=== PATIENT | female | born 1935 | race Caucasian/White ===

== ENCOUNTER 2018-12-09 21:24 | Inpatient (IN) ==
[2018-12-09 21:45] LABS: Basophils # 0.1 K/mm3 (0-0.2); Basophils % 0.9 % (0.1-2.0); Eosinophils # 0.2 K/mm3 (0.0-0.4); Eosinophils % 2.6 % (0.1-12.0); Hematocrit 42.6 % (37.0-47.0); Hemoglobin 13.4 g/dL (12.2-16.2); Lymphocytes # 2.3 K/mm3 (0.7-4.5); Lymphocytes % 35.4 % (10-50); Mean Corpuscular HGB Conc 31.5 g/dL (31.8-35.4); Mean Corpuscular Volume 96.5 fl (81-99); Mean Platelet Volume 7.8 fl (7.4-10.4); Monocytes # 0.4 K/mm3 (0.1-1.0); Monocytes % 6.7 % (1.7-9.3); Neutrophils # 3.5 K/mm3 (1.8-7.8); Neutrophils % 54.3 % (37.0-80.0); Platelet Count 271 K/mm3 (142-424); Red Blood Count 4.42 M/mm3 (4.20-5.40); Red Cell Distribution Width 13.1 % (11.5-17.5); White Blood Count 6.4 K/mm3 (4.8-10.8)
[2018-12-09 22:00] LABS: Blood Urea Nitrogen 20 mg/dL (7-18); Calcium 9.2 mg/dL (8.5-10.1); Carbon Dioxide 29 mmol/L (21.0-32.0); Chloride 103 mmol/L (98-107); Glucose 185 mg/dL (74-106); Sodium 141 mmol/L (136-145)
--- NOTE | 2018-12-09 22:29 | Emergency Department Note ---
ED Disposition Clinical Impression: Acute coronary syndrome Disposition: Admitted As Inpatient Condition on Discharge: Serious - Critical Care Critical Care Time: No Attestation: On 12/09/18, the high probability of a clinically significant, sudden or life threatening deterioration of the following system(s) required my full and direct attention, intervention and personal management. The time I documented below is in addition to time spent performing reported procedures but includes the following listed in this critical care notation. Medical Decision Making - Medical Records Medical records reviewed: Yes: I reviewed the patient's medical records. - Aakash Inquiry Pt receiving controlled substance: No Vital Signs: 12/09/18 21:24 12/09/18 22:07 12/09/18 22:45 Temperature 99.3 F Temperature Source Oral Pulse Rate [Right Brachial] 78 71 69 Respiratory Rate 20 18 18 Blood Pressure [Right Arm] 160/93 H 170/83 H 163/69 H Blood Pressure Mean [Right Arm] 115 112 100 Blood Pressure Source [Right Arm] Automatic Cuff Automatic Cuff Automatic Cuff Blood Pressure Position [Right Arm] Sitting Sitting Sitting 02 Sat by Pulse Oximetry 96 95 96 Oxygen Delivery Method Room Air Nasal Cannula Nasal Cannula Oxygen Flow Rate (LPM) 2 2 - Lab Data Lab results reviewed: Yes: I reviewed the patient's lab results. Lab Results 12/09/18 21:15: WBC 6.4, RBC 4.42, Hgb 13.4, Hct 42.6, MCV 96.5, MCH 30.4, MCHC 31.5 L, RDW 13.1, Plt Count 271, MPV 7.8, Neut % (Auto) 54.3, Lymph % (Auto) 35.4, [place] % (Auto) 6.7, Eos % (Auto) 2.6, Baso % (Auto) 0.9, Neut # (Auto) 3.5, Lymph # (Auto) 2.3, [place] # (Auto) 0.4, Eos # (Auto) 0.2, Baso # (Auto) 0.1 12/09/18 21:15: Sodium 141, Potassium 4.0, Chloride 103, Carbon Dioxide 29, Anion Gap 13.0, BUN 20 H, Creatinine 0.97, Estimated Creat Clear 31, Estimated GFR 55 L, Est GFR ( Amer) 66, Glucose 185 H, Calcium 9.2, Troponin I < 0 .02 12/09/18 21:15: PT 11.2, INR 1.08, APTT 27.6 Result diagrams: 12/09/18 21:15 12/09/18 21:15 Orders (Tests/Meds): ED MEDICATIONS Generic Name Dose Route Start Last Admin Trade Name Freq PRN Reason Stop Dose Admin Heparin Sodium/Dextrose 500 mls @ 10 mls/hr 12/09/18 22:30 12/09/18 22:33 Heparin 25,000 Units In D5w 500ml Premix IV 01/08/19 22:29 10 mls/hr .Q25H LISETTE Administration 500 UNITS/HR Discontinued Medications Generic Name Dose Route Start Last Admin Trade Name Freq PRN Reason Stop Dose Admin Heparin Sodium (Porcine) 4,700 unit 12/09/18 21:57 12/09/18 21:58 Heparin Sodium 5,000 Units/Ml Vial IV 12/09/18 21:58 4,700 unit ONCE ONE Administration Morphine Sulfate 2 mg 12/09/18 22:30 12/09/18 22:31 Morphine 2mg/Ml Syringe IV 12/09/18 22:31 2 mg ONCE ONE Administration Nitroglycerin 1 gm 12/09/18 22:30 12/09/18 22:32 Nitroglycerin 1 Inch Oint Udp TD 12/09/18 22:31 1 gm ONCE ONE Administration Ticagrelor 180 mg 12/09/18 21:57 12/09/18 21:58 Brilinta 90mg Tablet PO 12/09/18 21:58 180 mg ONCE ONE Administration ORDERS Category Date Time Status XR chest portable Stat Exams 12/09/18 21:35 Taken ECG Request by /Nse Stat Y 12/09/18 21:34 Ordered - Radiology Data #1 Image(s): Chest Image Reviewed: Yes I reviewed the patient's radiology image Preliminary Findings: Normal/NAD - ECG Data Tracing #1 I reviewed this ECG and interpreted as documented below: Arrhythmias present: afib Ischemic changes: ST elevation ECG compared to prior tracings: this ECG reveals significant changes Tracing #2 Arrhythmias present: accelerated junctional rhythm Ischemic changes: non-specific ST-T wave changes ECG compared to prior tracings: this ECG reveals significant changes Tracing #3 Arrhythmias present: afib Ischemic changes: non-specific ST-T wave changes - Physician Consults Physician Consulted: dimas Reason -: Admission Additional Consult: nae Reason -: Pt condition Chest Pain HPI - General Chief Complaint: Chest Pain Stated Complaint: CP Time Seen by Provider: 12/09/18 21:25 Mode of Arrival: EMS Source of Information: Patient, Relative, EMS, Medical Record Limitations: No Limitations Description of Symptoms (Recalled from ER Triage Doc. by RN): Pt c/o cp that started about couple hours ago. Denies any other symptoms at this time. - History of Present Illness HPI narrative: pt with acute onset of chest pain tonight with hx of cardiac disease - MD complaint: chest pain indicative of cardiac Onset (ago): hour(s) Duration: intermittent Activity at onset: during rest Pain location: substernal Quality: heaviness Treatments prior to or on arrival for Cardiac Chest Pain: none - EMY Score for Non-Stemi Age of Patient: 80-89 years old Heart Rate: 70-89 bpm Systolic Blood Pressure: 160-199 mmHg Serum Creatinine: 0.80-1.19 mg/dl CHF [place] Class: I-No CHF Other Risk Factors: None Non-Stemi Risk Score: 117 - Related Data Prior Cardiac Testing/Procedures: CABG On Oral Contraceptives: No Allergies Allergy/AdvReac Type Severity Reaction Status Date / Time MED GIVEN TO REVERSE EPIDURAL Allergy Unknown Uncoded 05/28/17 14:31 [facility] History - Hepatitis A Screen Drug use history?: No High risk sexual behaviors?: No History of sexually transmitted infection?: No Currently employed?: No Childcare worker?: No Do you have indoor plumbing?: Yes Do you have electricity?: Yes Attestation statement:: This patient has been screened for Hepatitis A risk factors. I have reviewed the patient's past medical history: Yes - Social History Alcohol Intake: never Occupational Status: retired ROS Obtained: Yes All systems reviewed & no additional complaints - Constitutional Constitutional: Denies fever(s) - Eyes Eyes: Denies change in vision - ENT Ears, Nose, Mouth, and Throat: Denies sore throat - Cardiovascular Cardiovascular: Reports chest pain, Reports dyspnea - Respiratory Respiratory: No cough - Gastrointestinal Gastrointestingal: Denies: abdominal pain - Genitourinary Female Genitourinary: Denies hematuria - Musculoskeletal Musculoskeletal: Denies joint pain - Integumentary/Breasts Skin/Breast: Denies rash - Neurologic Neurologic: Denies seizure-like activity Physical Exam - General General appearance: alert - Head Head exam: normocephalic - Eye Eye exam: Present: PERRL, EOMI. Absent: scleral icterus - ENT ENT exam: Present: mucous membranes dry - Neck Neck exam: Present: trachea midline - Respiratory Respiratory exam: Present: normal lung sounds bilaterally. Absent: respiratory distress - Cardiovascular Cardiovascular exam: Present: regular rate, systolic murmur, +S4 - Abdominal Exam Abdominal exam: Present: soft - Extremities Exam Extremities exam: Absent: calf tenderness - Neurological Exam Neurological exam: Present: alert, oriented X3, CN II-XII intact - Psychiatric Psychiatric exam: Present: normal affect - Skin Skin exam: Absent: rash
[2018-12-09 23:01] LABS: Activated Partial Thrombo Time 27.6 seconds (23.6-34.0); INR 1.08 (0.9-1.1); Prothrombin Time 11.2 seconds (9.4-11.8)
--- NOTE | 2018-12-10 07:39 | Pharmacy Consult Notes ---
[facility] Pharmacy VTE Monitoring - Patient Demographics Admission date: 12/09/18 Report Date: 12/10/18 Time: 07:39 Allergies/Adverse Reactions: Patient Allergies MED GIVEN TO REVERSE EPIDURAL Allergy (Unknown, Uncoded 05/28/17 14:31) Height: 1.52 m Weight: 50.547 kg Patient Problems: Current Active Problems (Updated 12/09/18 @ 23:14 by Macho Zuniga MD) Acute coronary syndrome (Acute) - VTE Risk Labs: VTE Related Lab Results Hgb 13.4 g/dL (12.2-16.2) 12/09/18 21:15 Hct 42.6 % (37.0-47.0) 12/09/18 21:15 Plt Count 271 K/mm3 (142-424) 12/09/18 21:15 PT 11.2 seconds (9.4-11.8) 12/09/18 21:15 INR 1.08 (0.9-1.1) 12/09/18 21:15 APTT 27.6 seconds (23.6-34.0) 12/09/18 21:15 BUN 20 mg/dL (7-18) H 12/09/18 21:15 Creatinine 0.97 mg/dL (0.55-1.02) 12/09/18 21:15 Estimated Creat Clear 31 mL/min (50-200) 12/09/18 21:15 Was VTE Risk Assessment Performed: Yes VTE Score: 5 VTE Risk Level: Low Risk Clinical Trial Participant: No - Prophylaxis VTE Prophylaxis Ordered?: Yes Types of VTE Prophylaxis: TEDS Knee High
--- NOTE | 2018-12-10 07:58 | History & Physical Report ---
*Admission Date: 12/09/18 *Chief complaint: Chest pain *History of present illness: 83-year-old female presented to the emergency department yesterday evening after onset of chest pain at home with fear that she was having a heart attack. She took nitroglycerin in route to the hospital. In the emergency department patient underwent evaluation and was admitted for serial troponins. Her second troponin was markedly abnormal. Patient this morning denies any current chest pain and a nitroglycerin patch is in place. She does admit to nausea with ambulation only. Patient has a personal history of coronary artery disease and is status post CABG and PCI. Patient does not know the dates of interventions and family who is at bedside is unable to provide additional information [facility] History I have reviewed the patient's past medical history: Yes Medical History: Reports:: Arrhythmia, Atrial Fibrillation, Hypertension Denies:: Cancer, Diabetes Mellitus Type 1, Diabetes Mellitus Type 2, MRSA *Have you ever received a pneumonia vaccine?: Yes *Have you received a flu vaccine this season?: Yes Laterality Cases: Bilateral: Arthroscopy Shoulder Other Surgeries: Yes: CABG, Cardiac Catheterization Amputation: No Fractures: Yes - *Social History Smoking Status: Never smoker Alcohol Intake: never *Occupational Status:: retired Housing: house Household Members: spouse *Travel in the last 8 weeks: None - Psychiatric History Expresses thoughts of harming self/others: None Suicide Plan Description: No Plan Family Hx:: Cancer, Coronary Artery Disease, Heart Attack, Hyperlipidemia, Hypertension Review of Systems - Review of Systems Review of systems:: pertinent systems reviewed and negative unless documented below - *Neurologic Denies seizure-like activity Meds Allergies Allergy/AdvReac Type Severity Reaction Status Date / Time MED GIVEN TO REVERSE EPIDURAL Allergy Unknown Uncoded 05/28/17 14:31 Exam Vital signs and Labs for Last 24 Hours: Temp Pulse Resp BP Pulse Ox 97.4 F L 82 16 134/79 98 12/10/18 04:00 12/10/18 04:00 12/10/18 04:00 12/10/18 04:00 12/10/18 04:00 Laboratory Results - last 24 hr 12/09/18 21:15: WBC 6.4, RBC 4.42, Hgb 13.4, Hct 42.6, MCV 96.5, MCH 30.4, MCHC 31.5 L, RDW 13.1, Plt Count 271, MPV 7.8, Neut % (Auto) 54.3, Lymph % (Auto) 35.4, [place] % (Auto) 6.7, Eos % (Auto) 2.6, Baso % (Auto) 0.9, Neut # (Auto) 3.5, Lymph # (Auto) 2.3, [place] # (Auto) 0.4, Eos # (Auto) 0.2, Baso # (Auto) 0.1 12/09/18 21:15: Sodium 141, Potassium 4.0, Chloride 103, Carbon Dioxide 29, Anion Gap 13.0, BUN 20 H, Creatinine 0.97, Estimated Creat Clear 31, Estimated GFR 55 L, Est GFR ( Amer) 66, Glucose 185 H, Calcium 9.2, Troponin I < 0.02 12/09/18 21:15: PT 11.2, INR 1.08, APTT 27.6 12/10/18 02:45: Troponin I 38.23 H I & O for Last 24 hours: Intake & Output 12/07/18 12/08/18 12/09/18 12/10/18 11:59 11:59 11:59 11:59 Output Total 150 / 150 Balance -150 / -150 Weight 111 lb 7 oz Narrative: Patient is laying comfortably in bed although she looks afraid. ENT exam is grossly normal. Neck has no lymphadenopathy or jugular venous distention. Heart rate is irregular. Lungs are clear. Abdomen is thin and soft. Extremities are without edema Assessment and Plan (1) Non-ST elevation IN (NSTEMI) Current visit: Yes Status: Acute Category: Medical Code(s): I21.4 - Non-ST elevation (NSTEMI) myocardial infarction (2) Atherosclerotic heart disease Current visit: Yes Status: Acute Category: Medical Code(s): I25.10 - Atherosclerotic heart disease of [place] coronary artery without angina pectoris (3) Acute coronary syndrome Current visit: Yes Status: Acute Category: Medical Code(s): I24.9 - Acute ischemic heart disease, unspecified - Assessment and plan all Dx Assessment and Plan for all problems:: 1. Continue heparin, nitroglycerin paste 2. Home medicines will be reconciled 3. Cardiology consult
[2018-12-10 08:06] LABS: Anion Gap 11.4 mEq/L (5-15); Calcium 8.4 mg/dL (8.5-10.1); Chol/HDL Ratio 2.3 (1-3.5)
[2018-12-10 08:21] LABS: Lymphocytes # 1.5 K/mm3 (0.7-4.5)
--- NOTE | 2018-12-10 08:22 | Pharmacy Consult Notes ---
[facility] Pharmacy Heparin Dosing - Demographic Data Admission date:: 12/10/18 Date: 12/10/18 Time: 08:18 Allergies/Adverse Reactions: Allergies Allergy/AdvReac Type Severity Reaction Status Date / Time MED GIVEN TO REVERSE EPIDURAL Allergy Unknown Uncoded 05/28/17 14:31 Height: 1.52 m Weight: 50.5 kg - Indication Medication therapy:: Heparin Patient Problems: Current Active Problems (Updated 12/10/18 @ 10:14 by Renetta Kraft APRN) Acute coronary syndrome (Acute) Non-ST elevation [place] (NSTEMI) (Acute) Atherosclerotic heart disease (Acute) Coronary artery disease (Chronic) History of coronary artery bypass graft (Chronic) Hypertension (Chronic) Atrial fibrillation (Chronic) CVA?: No Bleeding problem?: No Kidney disease?: No HI?: Yes Desired PTT range:: 60-80 seconds - Labs Anticoagulation Lab Results:: 12/09/18 21:15 Hgb 13.4 Hct 42.6 Plt Count 271 - Monitoring Dose Monitor 1 Date: 12/09/18 Time: 21:15 PTT Result:: 27.6 Infusion Rate:: 500 UNITS/HR (10 ML/HR) DR. HARRIS ORDERED HEPARIN BOLUS 100 UNITS/KG (4700 UNITS) X1 DOSE. ER CALLED FOR DOSING FOR DRIP. RECOMMENDED PATIENT START AT 500 UNITS/HR (10 ML/HR). Comment:: 4700 UNIT BOLUS Dose Monitor 2 Date: 12/10/18 Time: 06:08 PTT Result:: 54.1 Infusion Rate:: 550 UNITS/HR (11 ML/HR) Comment:: REDRAW AT 1300 - Core Measures Is INR > or = 2 at discharge?: No Most Recent Labs:: Laboratory Results - last 24 hr 12/09/18 21:15: WBC 6.4, RBC 4.42, Hgb 13.4, Hct 42.6, MCV 96.5, MCH 30.4, MCHC 31.5 L, RDW 13.1, Plt Count 271, MPV 7.8, Neut % (Auto) 54.3, Lymph % (Auto) 35.4, [place] % (Auto) 6.7, Eos % (Auto) 2.6, Baso % (Auto) 0.9, Neut # (Auto) 3.5, Lymph # (Auto) 2.3, [place] # (Auto) 0.4, Eos # (Auto) 0.2, Baso # (Auto) 0.1 12/09/18 21:15: Sodium 141, Potassium 4.0, Chloride 103, Carbon Dioxide 29, Anion Gap 13.0, BUN 20 H, Creatinine 0.97, Estimated Creat Clear 31, Estimated GFR 55 L, Est GFR ( Amer) 66, Glucose 185 H, Calcium 9.2, Troponin I < 0.02 12/09/18 21:15: PT 11.2, INR 1.08, APTT 27.6 12/10/18 02:45: Troponin I 38.23 H 12/10/18 06:08: Sodium 141, Potassium 4.4, Chloride 108 H, Carbon Dioxide 26, Anion Gap 11.4, BUN 17, Creatinine 0.75 D, Estimated Creat Clear 33, Estimated GFR 73, Est GFR ( Amer) 89 D, Glucose 114 H D, Calcium 8.4 L, Magnesium 1.9, Triglycerides 31, Cholesterol 139 L, LDL Cholesterol 73, VLDL Cholesterol 6, HDL Cholesterol 60, Cholesterol/HDL Ratio 2.3 12/10/18 06:08: APTT 54.1 H* D Were Heparin and Warfarin started on the same day?: No Comments:: WARFARIN NOT STARTED, HEART CATH DONE
[2018-12-10 08:59] LABS: Basophils % 0.4 % (0.1-2.0); Eosinophils % 0.2 % (0.1-12.0); Hematocrit 38.7 % (37.0-47.0); Mean Corpuscular HGB Conc 30.7 g/dL (31.8-35.4); Mean Corpuscular Volume 97.6 fl (81-99); Mean Platelet Volume 7.6 fl (7.4-10.4); Monocytes # 0.5 K/mm3 (0.1-1.0); Neutrophils # 4.4 K/mm3 (1.8-7.8); Neutrophils % 68.4 % (37.0-80.0); Platelet Count 230 K/mm3 (142-424); Red Blood Count 3.96 M/mm3 (4.20-5.40); White Blood Count 6.4 K/mm3 (4.8-10.8)
[2018-12-10 09:14] LABS: Hemoglobin 11.9 g/dL (12.2-16.2)
--- NOTE | 2018-12-10 10:06 | Consult Report ---
History of Present Illness Consult date: 12/10/18 Requesting physician: Brady Medina Consult reason: chest pain Chief complaint: Chest pain Additional Medical History:: 1. Coronary artery disease status post coronary artery bypass grafting 2. Atrial fibrillation 3. Hypertension History of present illness: This is an 83-year-old white female who presented to the emergency department with chest pain. The patient states that she ate dinner last night and after she ate dinner she had sudden onset of chest pain. She states that this is a left-sided severe pressure sensation. She states that it did not radiate. She states that it was very uncomfortable and is associated with shortness of breath and nausea. She states she feels as if she is going to vomit but has not been able to vomit. The patient states that the pain was the worst pain that she has had ever experienced before and was severe. The patient states that she still feels really bad this morning. She states that she is extremely nauseated. Her chest pain and pressure are better but the nausea is severe. The patient denies shortness of breath this morning but she looks short of breath and when she is talking she gets very short of breath easily. The patient denies any fever, chills, vomiting, diarrhea. She states prior to last night she had not had any chest pain. She states that she did take some nitroglycerin at home before coming to the emergency department which did help her pain. She states nothing worsened her pain. [facility] History I have reviewed the patient's past medical history: Yes Medical History: Reports:: Arrhythmia, Atrial Fibrillation, Hypertension Denies:: Cancer, Diabetes Mellitus Type 1, Diabetes Mellitus Type 2, MRSA *Have you ever received a pneumonia vaccine?: Yes *Have you received a flu vaccine this season?: Yes Laterality Cases: Bilateral: Arthroscopy Shoulder Other Surgeries: Yes: CABG, Cardiac Catheterization Amputation: No Fractures: Yes - *Social History Smoking Status: Never smoker Alcohol Intake: never *Occupational Status:: retired Housing: house Household Members: spouse *Travel in the last 8 weeks: None - Psychiatric History Expresses thoughts of harming self/others: None Suicide Plan Description: No Plan Family Hx:: Cancer, Coronary Artery Disease, Heart Attack, Hyperlipidemia, Hypertension Meds Home Medications Medication Instructions Recorded Confirmed Type Famotidine [Acid Controller] 20 mg PO DAILY 12/10/18 12/10/18 History Isosorbide Dinitrate 30 mg PO BID 12/10/18 12/10/18 History Metoprolol Succinate 12.5 mg PO DAILY 12/10/18 12/10/18 History Nitroglycerin [Nitrostat 0.4mg SL 0.4 mg SL NEEDED PRN 12/10/18 12/10/18 History Tablet] Pravastatin Sodium [Pravachol 40mg 40 mg PO DAILY 12/10/18 12/10/18 History Tablet] Pravastatin Sodium [Pravachol 40mg 40 mg PO HS 12/10/18 12/10/18 History Tablet] Warfarin Sodium 4 mg PO DAILY 12/10/18 12/10/18 History Allergies Allergy/AdvReac Type Severity Reaction Status Date / Time MED GIVEN TO REVERSE EPIDURAL Allergy Unknown Uncoded 05/28/17 14:31 Review of Systems - Review of Systems Review of systems:: pertinent systems reviewed and negative unless documented below - Constitutional Reports fatigue - *Cardiovascular Reports chest pain, Reports chest pain at rest, Reports chest pain with activity, Reports shortness of breath, Reports shortness of breath with activity - *Respiratory Reports shortness of breath, Reports shortness of breath with activity - *Gastrointestinal Reports nausea - *Neurologic Denies seizure-like activity Exam Vital signs and Labs for Last 24 Hours: Temp Pulse Resp BP Pulse Ox 98.7 F 72 16 134/66 99 12/10/18 08:00 12/10/18 08:00 12/10/18 08:00 12/10/18 08:00 12/10/18 08:00 Laboratory Results - last 24 hr 12/09/18 21:15: WBC 6.4, RBC 4.42, Hgb 13.4, Hct 42.6, MCV 96.5, MCH 30.4, MCHC 31.5 L, RDW 13.1, Plt Count 271, MPV 7.8, Neut % (Auto) 54.3, Lymph % (Auto) 35.4, [place] % (Auto) 6.7, Eos % (Auto) 2.6, Baso % (Auto) 0.9, Neut # (Auto) 3.5, Lymph # (Auto) 2.3, [place] # (Auto) 0.4, Eos # (Auto) 0.2, Baso # (Auto) 0.1 12/09/18 21:15: Sodium 141, Potassium 4.0, Chloride 103, Carbon Dioxide 29, Anion Gap 13.0, BUN 20 H, Creatinine 0.97, Estimated Creat Clear 31, Estimated GFR 55 L, Est GFR ( Amer) 66, Glucose 185 H, Calcium 9.2, Troponin I < 0.02 12/09/18 21:15: PT 11.2, INR 1.08, APTT 27.6 12/10/18 02:45: Troponin I 38.23 H 12/10/18 06:08: Troponin I 35.12 H 12/10/18 06:08: WBC 6.4, RBC 3.96 L, Hgb 11.9 L D, Hct 38.7, MCV 97.6, MCH 30.0, MCHC 30.7 L, RDW 13.0, Plt Count 230, MPV 7.6, Neut % (Auto) 68.4, Lymph % (Auto) 24.0, [place] % (Auto) 7.0, Eos % (Auto) 0.2, Baso % (Auto) 0.4, Neut # (Auto) 4.4, Lymph # (Auto) 1.5, [place] # (Auto) 0.5, Eos # (Auto) 0.0, Baso # (Auto) 0.0 12/10/18 06:08: Sodium 141, Potassium 4.4, Chloride 108 H, Carbon Dioxide 26, Anion Gap 11.4, BUN 17, Creatinine 0.75 D, Estimated Creat Clear 33, Estimated GFR 73, Est GFR ( Amer) 89 D, Glucose 114 H D, Calcium 8.4 L, Magnesium 1.9, Triglycerides 31, Cholesterol 139 L, LDL Cholesterol 73, VLDL Cholesterol 6, HDL Cholesterol 60, Cholesterol/HDL Ratio 2.3 12/10/18 06:08: APTT 54.1 H* D I & O for Last 24 hours: Intake & Output 12/07/18 12/08/18 12/09/18 12/10/18 23:59 23:59 23:59 23:59 Intake Total 449 / 449 Output Total 150 / 150 Balance 299 / 299 Weight 107 lb 3 oz 111 lb 5.335 oz Narrative: EKG #1 is atrial fibrillation with a rate of 83, old septal UT pattern and right axis deviation. EKG #2 shows atrial fibrillation with a rate of 82, anterior lateral UT pattern, old inferior UT pattern and left axis deviation. Next Her EKG shows atrial fibrillation with a rate of 68. - Constitutional no acute distress, average body habitus - *Routine HEENT Exam Head: Present: normocephalic, atraumatic Eye: Present: EOMI, PERRL ENT: Present: mucous membranes moist - *Routine Neck Exam Present: supple, full ROM, normal carotid upstroke. Absent: JVD, carotid bruit, lymphadenopathy - *Routine Respiratory Exam Present: CTA bilaterally - *Routine Cardiovascular Exam Present: Normal S1, Normal S2, irregularly irregular. Absent: murmur - *Routine Abdominal Exam Present: soft, normoactive bowel sounds. Absent: tenderness, distended - *Routine Extremities Exam Present: full ROM, pulses intact, normal capillary refill. Absent: cyanosis, clubbing, edema - *Routine Skin Exam Present: intact, warm. Absent: erythema, rash - *Routine Neurological Exam Present: alert, oriented X3, CN II-XII intact. Absent: sensory deficit, motor deficit - Routine Psychiatric Exam Present: normal affect, normal thought process - Detailed Eye Exam Eyelids: Left normal inspection Assessment and Plan (1) Non-ST elevation [place] (NSTEMI) Current visit: Yes Status: Acute Category: Medical Code(s): I21.4 - Non-ST elevation (NSTEMI) myocardial infarction (2) Acute coronary syndrome Current visit: Yes Status: Acute Category: Medical Code(s): I24.9 - Acute ischemic heart disease, unspecified (3) Coronary artery disease Current visit: Yes Status: Chronic Category: Medical Code(s): I25.10 - Atherosclerotic heart disease of [place] coronary artery without angina pectoris (4) History of coronary artery bypass graft Current visit: Yes Status: Chronic Category: Surgical Code(s): Z95.1 - Presence of aortocoronary bypass graft (5) Hypertension Current visit: Yes Status: Chronic Category: Medical Code(s): I10 - Essential (primary) hypertension (6) Atrial fibrillation Current visit: Yes Status: Chronic Category: Medical Code(s): I48.91 - Unspecified atrial fibrillation - Assessment and plan all Dx Assessment and Plan for all problems:: Plan: 1. The patient was admitted to the hospital with chest pain and pressure she was found to have a non-ST elevation myocardial infarction her highest troponin has been 35.12. The patient does have an abnormal EKG. She has known coronary artery disease and is status post coronary artery bypass grafting and percutaneous intervention. The patient is having an acute coronary syndrome. We will plan to proceed with left cardiac catheterization today with right groin access to evaluate her coronary artery disease. 2. The patient has been educated on the risks and benefits of proceeding with left cardiac catheterization. Patient verbalized understanding and is agreeable in proceeding with the procedure. 3. The patient will remain n.p.o. in preparation for left cardiac catheterization. 4. She does have known coronary artery disease with bypass grafting. 5. Her blood pressure is well controlled. 6. Her LDL goal is less than 55 her LDL is currently 73. Her HDL is 60. 7. She does have chronic atrial fibrillation. She is rate controlled. She is on Coumadin for long-term anticoagulation on an outpatient basis. 8. She is currently on a heparin drip due to her elevated troponin, so her Coumadin is on hold. 9. The patient has been loaded with Brilinta. 10. Her echocardiogram is currently pending. 11. Further recognitions will be made pending the patient's response to treatment and the results of her left cardiac catheterization and echocardiogram today. Thank you for the opportunity to help participate in the care of this patient.
--- NOTE | 2018-12-11 06:53 | Progress Note ---
Internal Medicine - PN: Subj *Date: 12/11/18 *Time: 06:50 Interval history: Patient underwent successful stenting of right coronary artery yesterday. Post procedurally patient has had an irregular heart rate with bradycardia down to a low of 49 and occasional pauses, the longest lasting 3 seconds yesterday afternoon. Overnight patient continued to have irregularity to her heart rate and rhythm with longest pause recorded at approximately 2 seconds. Patient herself is unaware of these pauses. She recently ambulated back and forth to the bathroom and denies chest pain, shortness of breath, lightheadedness or presyncopal symptoms. Exam Vital signs and Labs for Last 24 Hours: Temp Pulse Resp BP Pulse Ox 97.3 F L 73 16 96/47 L 98 12/11/18 00:00 12/11/18 06:00 12/11/18 06:00 12/11/18 06:00 12/11/18 06:00 Laboratory Results - last 24 hr 12/10/18 06:08: Troponin I 35.12 H 12/10/18 06:08: WBC 6.4, RBC 3.96 L, Hgb 11.9 L D, Hct 38.7, MCV 97.6, MCH 30.0, MCHC 30.7 L, RDW 13.0, Plt Count 230, MPV 7.6, Neut % (Auto) 68.4, Lymph % (Auto) 24.0, [place] % (Auto) 7.0, Eos % (Auto) 0.2, Baso % (Auto) 0.4, Neut # (Auto) 4.4, Lymph # (Auto) 1.5, [place] # (Auto) 0.5, Eos # (Auto) 0.0, Baso # (Auto) 0.0 12/10/18 06:08: Sodium 141, Potassium 4.4, Chloride 108 H, Carbon Dioxide 26, Anion Gap 11.4, BUN 17, Creatinine 0.75 D, Estimated Creat Clear 33, Estimated GFR 73, Est GFR ( Amer) 89 D, Glucose 114 H D, Calcium 8.4 L, Magnesium 1.9, Triglycerides 31, Cholesterol 139 L, LDL Cholesterol 73, VLDL Cholesterol 6, HDL Cholesterol 60, Cholesterol/HDL Ratio 2.3 12/10/18 06:08: APTT 54.1 H* D 12/10/18 10:22: Activated Clotting Time 170 H* 12/10/18 10:32: Activated Clotting Time > 400 H* D 12/10/18 13:26: APTT 104.8 H* D I & O for Last 24 hours: Intake & Output 12/08/18 12/09/18 12/10/18 12/11/18 11:59 11:59 11:59 11:59 Intake Total 449 / 449 720 / 720 Output Total 150 / 150 300 / 300 Balance 299 / 299 420 / 420 Weight 111 lb 5.335 oz 109 lb 1 oz Narrative: Patient looks well this morning. Lungs are clear to auscultation. Heart rate is irregular. Abdomen is thin and soft. Extremities are without edema. Assessment and Plan (1) ST elevation [place] (STEMI) Current visit: Yes Status: Acute Category: Medical Code(s): I21.3 - ST elevation (STEMI) myocardial infarction of unspecified site (2) Left ventricular systolic dysfunction Current visit: Yes Status: Acute Category: Medical Code(s): I51.9 - Heart disease, unspecified (3) Acute coronary syndrome Current visit: Yes Status: Acute Category: Medical Code(s): I24.9 - Acute ischemic heart disease, unspecified (4) Coronary artery disease Current visit: Yes Status: Chronic Category: Medical Code(s): I25.10 - Atherosclerotic heart disease of [place] coronary artery without angina pectoris (5) History of coronary artery bypass graft Current visit: Yes Status: Chronic Category: Surgical Code(s): Z95.1 - Presence of aortocoronary bypass graft (6) Hypertension Current visit: Yes Status: Chronic Category: Medical Code(s): I10 - Essential (primary) hypertension (7) Atrial fibrillation Current visit: Yes Status: Chronic Category: Medical Code(s): I48.91 - Unspecified atrial fibrillation (8) S/P right coronary artery (RCA) stent placement Current visit: Yes Status: Acute Category: Surgical Code(s): Z95.5 - Presence of coronary angioplasty implant and graft - Assessment and plan all Dx Assessment and Plan for all problems:: 1. Continue aspirin and Brilinta. Continue to hold beta-blockers 2. Continue telemetry monitoring today with increase in patient activity. At present patient seems to be in atrial fibrillation/flutter the majority of the time on telemetry
[2018-12-11 08:45] LABS: Calcium 8.2 mg/dL (8.5-10.1)
[2018-12-11 08:52] LABS: Basophils % 0.6 % (0.1-2.0); Eosinophils # 0.1 K/mm3 (0.0-0.4); Eosinophils % 1.8 % (0.1-12.0); Hematocrit 40.4 % (37.0-47.0); Hemoglobin 12.2 g/dL (12.2-16.2); Lymphocytes # 1.3 K/mm3 (0.7-4.5); Lymphocytes % 17.4 % (10-50); Mean Corpuscular HGB Conc 30.1 g/dL (31.8-35.4); Mean Corpuscular Volume 101.2 fl (81-99); Monocytes # 0.4 K/mm3 (0.1-1.0); Monocytes % 5.8 % (1.7-9.3); Neutrophils # 5.7 K/mm3 (1.8-7.8); Neutrophils % 74.4 % (37.0-80.0); Platelet Count 273 K/mm3 (142-424); Red Cell Distribution Width 13.2 % (11.5-17.5); White Blood Count 7.6 K/mm3 (4.8-10.8)
--- NOTE | 2018-12-11 11:29 | Cardiology Report ---
PROCEDURE: 2-D M-mode and color Doppler study INDICATIONS FOR THE TEST: Chest pain+ COPD Heart Murmur Tobacco Smoking Palpitations Fatigue Syncope Edema Hypertension Diabetes Mellitus Rheumatic Fever SOB+SANDHU Obesity Hyperlipidemia+ Family History HD Additional History Hx of CABG, 2 stents PATIENT INFORMATION HEIGHT: 60 WEIGHT:104 GENDER: Female B/P:163/69 2-D/M-MODE INTERPRETATION: 2-D MEASUREMENTS OBSERVED VALUES IN CMS Right Ventricular Dimension (RVDd) 2.3 Interventricular Septum (Thickness)(IVsd) 0.6 Left Ventricular Internal Dimensions(LVIDd) 5.0 Left Ventricular Posterior Wall (Thickness)(LVPWd) 0.7 Aortic Root 2.8 Aortic Cusp Separation 2.0 Left Atrial Dimensions (LAD) 4.7 2D 1. Left atrium is moderately enlarged, left ventricle is mildly dilated, severely reduced left ventricular systolic function, there is marked hypokinesis involving mid to distal septum, anterior, anterior apical, anterolateral lateral and inferior apical wall. 2. The right atrium is moderately enlarged, right ventricle is mildly dilated with normal contractility. 3. The aortic valve is thickened and calcified, leaflet continue to display mobility, there is no aortic stenosis. 4. Mitral valve has mitral annular calcification, leaflets are minimally thickened. 5. The tricuspid valve is grossly normal. 6. The pulmonic valve is poorly visualized. 7. No significant pericardial effusion noted. DOPPLER INTERROGATION: Doppler interrogation of the aortic, mitral and tricuspid valvular presence of moderate mitral and tricuspid regurgitation, calculated right ventricular systolic pressure is 52 mmHg consistent with moderate pulmonary hypertension, diastolic parameters are inconclusive, Doppler evidence of raised left atrial as well as left ventricular end-diastolic pressure seen. Mild aortic insufficiency also seen. Inferior vena cava is not well visualized. CONCLUSION: 1. Moderate biatrial enlargement, mildly dilated left ventricle, mild concentric left ventricular hypertrophy, visually estimated ejection fraction approximately 20%, with multiple segmental wall motion abnormality described above. Doppler evidence of raised left atrial as well as left ventricular end-diastolic pressure seen. 2. Mildly enlarged right ventricle with normal contractility. 3. Mild aortic, moderate mitral and tricuspid regurgitation, calculated right ventricular systolic pressure is 52 mmHg consistent with moderate pulmonary hypertension. Inferior vena cava is not well visualized. 4. No significant pericardial effusion noted.
--- NOTE | 2018-12-12 06:57 | Progress Note ---
Internal Medicine - PN: Subj *Date: 12/12/18 *Time: 06:54 Interval history: Patient did well during the initial part of her day yesterday but in the afternoon began complaining of shortness of breath while stationary. She continues to complain of shortness of breath this morning. Nursing reports there is been no significant bradycardia on telemetry monitoring. Patient has remained in atrial fibrillation Exam Vital signs and Labs for Last 24 Hours: Temp Pulse Resp BP Pulse Ox 98.4 F 79 17 148/75 H 97 12/12/18 03:58 12/12/18 03:58 12/12/18 03:58 12/12/18 03:58 12/12/18 03:58 Laboratory Results - last 24 hr 12/11/18 08:25: WBC 7.6, RBC 4.00 L, Hgb 12.2, Hct 40.4, MCV 101.2 H, MCH 30.4, MCHC 30.1 L, RDW 13.2, Plt Count 273, MPV 8.0, Neut % (Auto) 74.4, Lymph % (Auto) 17.4, [place] % (Auto) 5.8, Eos % (Auto) 1.8, Baso % (Auto) 0.6, Neut # (Auto) 5.7, Lymph # (Auto) 1.3, [place] # (Auto) 0.4, Eos # (Auto) 0.1, Baso # (Aut o) 0.0 12/11/18 08:25: Sodium 141, Potassium 4.0, Chloride 107, Carbon Dioxide 27, Anion Gap 11.0, BUN 18, Creatinine 1.20 H D, Estimated Creat Clear 27, Estimated GFR 43 L, Est GFR ( Amer) 52 L D, Glucose 91, Calcium 8.2 L I & O for Last 24 hours: Intake & Output 12/09/18 12/10/18 12/11/18 12/12/18 11:59 11:59 11:59 11:59 Intake Total 449 / 449 1200 / 1200 480 / 480 Output Total 150 / 150 600 / 600 200 / 200 Balance 299 / 299 600 / 600 280 / 280 Weight 111 lb 5.335 oz 109 lb 1 oz 108 lb 1 oz Narrative: Patient is awake and alert and does not appear to be in any distress. There is no increased work of breathing or tachypnea. Patient looks comfortable. Lung exam reveals faint crackles at the left base. Good aeration throughout the lung white. Heart rate is irregularly irregular Assessment and Plan (1) ST elevation [place] (STEMI) Current visit: Yes Status: Acute Category: Medical Code(s): I21.3 - ST elevation (STEMI) myocardial infarction of unspecified site (2) Left ventricular systolic dysfunction Current visit: Yes Status: Acute Category: Medical Code(s): I51.9 - Heart disease, unspecified (3) Acute coronary syndrome Current visit: Yes Status: Acute Category: Medical Code(s): I24.9 - Acute ischemic heart disease, unspecified (4) Coronary artery disease Current visit: Yes Status: Chronic Category: Medical Code(s): I25.10 - Atherosclerotic heart disease of [place] coronary artery without angina pectoris (5) History of coronary artery bypass graft Current visit: Yes Status: Chronic Category: Surgical Code(s): Z95.1 - Presence of aortocoronary bypass graft (6) Hypertension Current visit: Yes Status: Chronic Category: Medical Code(s): I10 - Essential (primary) hypertension (7) Atrial fibrillation Current visit: Yes Status: Chronic Category: Medical Code(s): I48.91 - Unspecified atrial fibrillation (8) S/P right coronary artery (RCA) stent placement Current visit: Yes Status: Acute Category: Surgical Code(s): Z95.5 - Presence of coronary angioplasty implant and graft (9) Shortness of breath Current visit: Yes Status: Acute Category: Medical Code(s): R06.02 - Shortness of breath CBC, BMP, BNP this morning. PA and lateral chest x-ray. Patient is in no distress her treatment decision will be made once labs and x-ray have returned. Etiology of shortness of breath I believe is most likely her Brilinta. Early acute systolic congestive heart failure needs to be ruled out
[2018-12-12 07:42] LABS: Calcium 8.6 mg/dL (8.5-10.1)
[2018-12-12 07:46] LABS: Basophils # 0.1 K/mm3 (0-0.2); Basophils % 0.7 % (0.1-2.0); Eosinophils # 0.2 K/mm3 (0.0-0.4); Eosinophils % 2.3 % (0.1-12.0); Hematocrit 38.6 % (37.0-47.0); Hemoglobin 12.2 g/dL (12.2-16.2); Lymphocytes # 2.3 K/mm3 (0.7-4.5); Lymphocytes % 28.1 % (10-50); Mean Corpuscular HGB Conc 31.6 g/dL (31.8-35.4); Mean Corpuscular Volume 96.3 fl (81-99); Mean Platelet Volume 7.6 fl (7.4-10.4); Monocytes # 0.6 K/mm3 (0.1-1.0); Monocytes % 8.1 % (1.7-9.3); Neutrophils # 4.9 K/mm3 (1.8-7.8); Neutrophils % 60.9 % (37.0-80.0); Platelet Count 234 K/mm3 (142-424); Red Cell Distribution Width 13.2 % (11.5-17.5)
--- NOTE | 2018-12-12 08:57 | Progress Note ---
Subjective Date: 12/12/18 Time: 08:54 Principal diagnosis: MA, coronary stenting, Cardiomyopathy Interval history: 83-year-old white female sitting in bedside chair in no acute distress. Patient does relate shortness of breath with minimal activity and even at rest. M edication changes have included discontinuation of Brilinta with institution of Plavix earlier today in hopes that shortness of breath will improve. Chest x- ray has been ordered for possibility of congestive heart failure with results pending at this time. Exam Vital signs and Labs for Last 24 Hours: Temp Pulse Resp BP Pulse Ox 98.4 F 92 H 18 151/88 H 98 12/12/18 08:00 12/12/18 08:00 12/12/18 08:00 12/12/18 08:00 12/12/18 08:00 Laboratory Results - last 24 hr 12/11/18 08:25: WBC 7.6, RBC 4.00 L, Hgb 12.2, Hct 40.4, MCV 101.2 H, MCH 30.4, MCHC 30.1 L, RDW 13.2, Plt Count 273, MPV 8.0, Neut % (Auto) 74.4, Lymph % (Auto) 17.4, [place] % (Auto) 5.8, Eos % (Auto) 1.8, Baso % (Auto) 0.6, Neut # (Auto) 5.7, Lymph # (Auto) 1.3, [place] # (Auto) 0.4, Eos # (Auto) 0.1, Baso # (Auto) 0.0 12/11/18 08:25: Sodium 141, Potassium 4.0, Chloride 107, Carbon Dioxide 27, Anion Gap 11.0, BUN 18, Creatinine 1.20 H D, Estimated Creat Clear 27, Estimated GFR 43 L, Est GFR ( Amer) 52 L D, Glucose 91, Calcium 8.2 L 12/12/18 07:27: WBC 8.0, RBC 4.00 L, Hgb 12.2, Hct 38.6, MCV 96.3, MCH 30.4, MCHC 31.6 L, RDW 13.2, Plt Count 234, MPV 7.6, Neut % (Auto) 60.9, Lymph % (Auto) 28.1, [place] % (Auto) 8.1, Eos % (Auto) 2.3, Baso % (Auto) 0.7, Neut # (Auto) 4.9, Lymph # (Auto) 2.3, [place] # (Auto) 0.6, Eos # (Auto) 0.2, Baso # (Auto) 0.1 12/12/18 07:27: Sodium 143, Potassium 4.0, Chloride 107, Carbon Dioxide 28, Anion Gap 12.0, BUN 21 H, Creatinine 0.98, Estimated Creat Clear 32, Estimated GFR 54 L, Est GFR ( Amer) 65 D, Glucose 90, Calcium 8.6 12/12/18 07:27: B-Natriuretic Peptide 518 H I & O for Last 24 hours: Intake & Output 12/09/18 12/10/18 12/11/18 12/12/18 11:59 11:59 11:59 11:59 Intake Total 449 / 449 1200 / 1200 1080 / 1080 Output Total 150 / 150 600 / 600 200 / 200 Balance 299 / 299 600 / 600 880 / 880 Weight 111 lb 5.335 oz 109 lb 1 oz 108 lb 1 oz - *Routine HEENT Exam Head: Present: normocephalic Eye: Present: EOMI, PERRL ENT: Present: mucous membranes moist - *Routine Neck Exam Present: supple. Absent: JVD, carotid bruit - *Routine Respiratory Exam Present: CTA bilaterally, rales. Absent: accessory muscle use, rhonchi, wheezes - *Routine Cardiovascular Exam Present: irregularly irregular. Absent: murmur, gallop, rubs - *Routine Extremities Exam Absent: edema, calf tenderness - *Routine Neurological Exam Present: alert, oriented X3, moving all extremities Progress Note: A&P (1) ST elevation [place] (STEMI) Status: Acute Current Visit: Yes (2) Left ventricular systolic dysfunction Status: Acute Current Visit: Yes (3) Acute coronary syndrome Status: Acute Current Visit: Yes (4) Coronary artery disease Status: Chronic Current Visit: Yes (5) History of coronary artery bypass graft Status: Chronic Current Visit: Yes (6) Hypertension Status: Chronic Current Visit: Yes (7) Atrial fibrillation Status: Chronic Current Visit: Yes (8) S/P right coronary artery (RCA) stent placement Status: Acute Current Visit: Yes (9) Shortness of breath Status: Acute Current Visit: Yes Assessment and Plan for All Diagnoses:: 1. Patient has been switched from Brilinta to Plavix in conjunction with aspirin therapy. 2. Chest X ray is pending with rales heard on exam. Suggest one-time dose of Lasix with repeat BM P in the a.m. BNP elevated at 518. 3. Patient is on Coumadin for chronic atrial fibrillation. 4. LifeVest to be fitted later today with anticipation of discharge home tomorrow if patient is feeling better. 5. In light of the patient's severe cardiomyopathy would recommend switching her metoprolol to carvedilol and adding AIME inhibitor therapy. Continue to watch for recurrent bradycardia and/or pauses. 6. Continue statin therapy 7. Continue isosorbide therapy for remaining coronary artery disease.
--- NOTE | 2018-12-12 16:47 | Progress Note ---
Internal Medicine - PN: Subj *Date: 12/12/18 *Time: 16:45 Interval history: Patient was fitted for LifeVest this afternoon is currently wearing this but after wearing the LifeVest briefly she finds it too heavy. Both the patient and her daughter do not believe that they will be able to adequately operate the LifeVest (such as changing the battery) at home. The patient has decided that she will forego wearing the LifeVest. Shortness of breath from this morning has improved. Patient did notice increased urination with administration of Lasix Exam Vital signs and Labs for Last 24 Hours: Temp Pulse Resp BP Pulse Ox 99.0 F 60 17 143/62 H 97 12/12/18 16:00 12/12/18 16:00 12/12/18 16:00 12/12/18 16:00 12/12/18 16:00 Laboratory Results - last 24 hr 12/12/18 07:27: WBC 8.0, RBC 4.00 L, Hgb 12.2, Hct 38.6, MCV 96.3, MCH 30.4, MCHC 31.6 L, RDW 13.2, Plt Count 234, MPV 7.6, Neut % (Auto) 60.9, Lymph % (Auto) 28.1, [place] % (Auto) 8.1, Eos % (Auto) 2.3, Baso % (Auto) 0.7, Neut # (Auto) 4.9, Lymph # (Auto) 2.3, [place] # (Auto) 0.6, Eos # (Auto) 0.2, Baso # (Auto) 0.1 12/12/18 07:27: Sodium 143, Potassium 4.0, Chloride 107, Carbon Dioxide 28, Anion Gap 12.0, BUN 21 H, Creatinine 0.98, Estimated Creat Clear 32, Estimated GFR 54 L, Est GFR ( Amer) 65 D, Glucose 90, Calcium 8.6 12/12/18 07:27: B-Natriuretic Peptide 518 H I & O for Last 24 hours: Intake & Output 12/10/18 12/11/18 12/12/18 12/13/18 11:59 11:59 11:59 11:59 Intake Total 449 / 449 1200 / 1200 1080 / 1080 360 / 360 Output Total 150 / 150 600 / 600 200 / 200 Balance 299 / 299 600 / 600 880 / 880 360 / 360 Weight 111 lb 5.335 oz 109 lb 1 oz 108 lb 1 oz - Constitutional no acute distress - *Routine Respiratory Exam Present: CTA bilaterally - *Routine Cardiovascular Exam Present: irregularly irregular Assessment and Plan (1) ST elevation [place] (STEMI) Current visit: Yes Status: Acute Category: Medical Code(s): I21.3 - ST elevation (STEMI) myocardial infarction of unspecified site (2) Left ventricular systolic dysfunction Current visit: Yes Status: Acute Category: Medical Code(s): I51.9 - Heart disease, unspecified (3) Acute coronary syndrome Current visit: Yes Status: Acute Category: Medical Code(s): I24.9 - Acute ischemic heart disease, unspecified (4) Coronary artery disease Current visit: Yes Status: Chronic Category: Medical Code(s): I25.10 - Atherosclerotic heart disease of [place] coronary artery without angina pectoris (5) History of coronary artery bypass graft Current visit: Yes Status: Chronic Category: Surgical Code(s): Z95.1 - Presence of aortocoronary bypass graft (6) Hypertension Current visit: Yes Status: Chronic Category: Medical Code(s): I10 - Essential (primary) hypertension (7) Atrial fibrillation Current visit: Yes Status: Chronic Category: Medical Code(s): I48.91 - Unspecified atrial fibrillation (8) S/P right coronary artery (RCA) stent placement Current visit: Yes Status: Acute Category: Surgical Code(s): Z95.5 - Presence of coronary angioplasty implant and graft (9) Shortness of breath Current visit: Yes Status: Acute Category: Medical Code(s): R06.02 - Shortness of breath - Assessment and plan all Dx Assessment and Plan for all problems:: Patient will be observed overnight for changes. Anticipate discharge in the morning
[2018-12-13 05:52] LABS: INR 1.07 (0.9-1.1); Prothrombin Time 11.1 seconds (9.4-11.8)
[2018-12-13 05:53] LABS: Anion Gap 10.9 mEq/L (5-15); Calcium 8.3 mg/dL (8.5-10.1)
--- NOTE | 2018-12-13 07:04 | Discharge Summary ---
General - General Admission date:: 12/09/18 Discharge date: 12/13/18 HPI HPI: 83-year-old female presented to the emergency department yesterday evening after onset of chest pain at home with fear that she was having a heart attack. She took nitroglycerin in route to the hospital. In the emergency department patient underwent evaluation and was admitted for serial troponins. Her second troponin was markedly abnormal. Patient this morning denies any current chest pain and a nitroglycerin patch is in place. She does admit to nausea with ambulation only. Patient has a personal history of coronary artery disease and is status post CABG and PCI. Patient does not know the dates of interventions and family who is at bedside is unable to provide additional information Hospital Course Hospital Course: Patient was admitted late on the evening of December 09 and while initial troponin was negative subsequent troponin vivienne significantly to level greater than 30. The following morning patient underwent left heart catheterization which revealed the following: IMPRESSION: 1. Coronary artery disease as described above 2. Critical disease in the right coronary artery which produced the ST elevation myocardial infarction last evening. 3. Successful reconstruction of the proximal mid distal right coronary artery critical disease reduced to 0% with 2 contiguous drug-eluting stents 4. Severe left ventricular dysfunction with regional wall motion abnormality 5. Mildly elevated LVEDP PLAN: 1. Brilinta and aspirin 2. Supportive care 3. LDL less than 55 4. Patient should be evaluated for possible lifevest 5. Avoid beta blockers time being given her bradycardia. 6. Avoidance of tobacco products 7. Cardiac rehabilitation Echocardiogram was also performed prior to heart catheterization which revealed an ejection fraction of 20 to 25% with biatrial enlargement, multi valvular disease, elevated left ventricular end-diastolic pressure. Post catheterization patient had some bradycardia with significant PVCs and sinus pauses. As time progressed the pauses which had been as long as 3 seconds resolved. PVCs resolved as well. Beta-blockers were held during that time. Patient progressed well and was initially plan patient will be discharged on December 12. However on the morning of December 12 patient had noted shortness of breath for the last 12 hours and examination revealed some rales in the left lung base with mild elevation of patient's BNP to 500. Patient was treated for mild congestive heart failure with a single dose of Lasix. In addition to this intervention her Brilinta was changed to Plavix. Her shortness of breath resolved by the afternoon of December 12. Due to how quickly the shortness of breath resolved I believe it was likely due to some mild CHF. However patient will stay on Plavix as Brilinta will be cost prohibitive. Patient was fitted with a LifeVest which initially she consented to but after a brief time of wearing the vest and feeling as if use of the device was too complex for her she decided against the LifeVest. Patient was observed for an additional 24 hours for recurrence of symptoms of heart failure. She had none. She was discharged home on December 13. Patient's metoprolol was discontinued at discharge in favor of carvedilol. Other new prescriptions include lisinopril and Plavix. Patient has been instructed to continue her warfarin for her atrial fibrillation Objective Vital signs: Temp Pulse Resp BP Pulse Ox 98.1 F 80 16 110/57 L 95 12/13/18 03:39 12/13/18 04:00 12/13/18 03:39 12/13/18 03:39 12/13/18 03:39 no acute distress - *Routine Respiratory Exam Present: CTA bilaterally - *Routine Cardiovascular Exam Present: irregularly irregular Results Labs on day of discharge: Labs from last 24 hours 12/13/18 12/13/18 12/12/18 05:30 05:30 07:27 WBC RBC Hgb Hct MCV MCH MCHC RDW Plt Count MPV Neut % (Auto) Lymph % (Auto) [place] % (Auto) Eos % (Auto) Baso % (Auto) Neut # (Auto) Lymph # (Auto) [place] # (Auto) Eos # (Auto) Baso # (Auto) PT 11.1 INR 1.07 Sodium 143 Potassium 3.9 Chloride 107 Carbon Dioxide 29 Anion Gap 10.9 BUN 23 H Creatinine 1.05 H Estimated Creat Clear 29 Estimated GFR 50 L Est GFR ( Amer) 60 Glucose 93 Calcium 8.3 L B-Natriuretic Peptide 518 H 12/12/18 12/12/18 07:27 07:27 WBC 8.0 RBC 4.00 L Hgb 12.2 Hct 38.6 MCV 96.3 MCH 30.4 MCHC 31.6 L RDW 13.2 Plt Count 234 MPV 7.6 Neut % (Auto) 60.9 Lymph % (Auto) 28.1 [place]ison % (Auto) 8.1 Eos % (Auto) 2.3 Baso % (Auto) 0.7 Neut # (Auto) 4.9 Lymph # (Auto) 2.3 Addison # (Auto) 0.6 Eos # (Auto) 0.2 Baso # (Auto) 0.1 PT INR Sodium 143 Potassium 4.0 Chloride 107 Carbon Dioxide 28 Anion Gap 12.0 BUN 21 H Creatinine 0.98 Estimated Creat Clear 32 Estimated GFR 54 L Est GFR ( Amer) 65 D Glucose 90 Calcium 8.6 B-Natriuretic Peptide DS: Diagnosis - Discharge Diagnosis (1) ST elevation GA (STEMI) Status: Acute (2) Left ventricular systolic dysfunction Status: Acute Problem details: Ejection fraction of 20 to 25% (3) Acute coronary syndrome Status: Acute (4) Coronary artery disease Status: Chronic (5) History of coronary artery bypass graft Status: Chronic (6) Hypertension Status: Chronic (7) Atrial fibrillation Status: Chronic (8) S/P right coronary artery (RCA) stent placement Status: Acute (9) Shortness of breath Status: Acute Discharge Plan - Patient Discharge Instructions ACTIVITY: Continue current activity DIET: continue same diet Patient Instructions: DI for Acute Coronary Syndrome, DI for Heart Attack, Heart-Healthy Diet, DI for Cardiac Catheterization, DI for Coronary Stenting, DI for Chest Pain, Coumadin Vitamin K/ Diet, Coumadin Therapy Booklet - Follow up Plan Follow up with: Uday Ronquillo MD [Primary Care Provider] - 12/17/18 Rohit Delaney MD [Staff Physician] - 1 week Disposition: Home, Self-Alf Medications: Home Medications Medication Instructions Recorded Confirmed Type Famotidine [Acid Controller] 20 mg PO DAILY 12/10/18 12/10/18 History Isosorbide Dinitrate 30 mg PO BID 12/10/18 12/10/18 History Metoprolol Succinate 12.5 mg PO DAILY 12/10/18 12/10/18 History Nitroglycerin [Nitrostat 0.4mg SL 0.4 mg SL NEEDED PRN 12/10/18 12/10/18 History Tablet] Pravastatin Sodium [Pravachol 40mg 40 mg PO HS 12/10/18 12/10/18 History Tablet] Warfarin Sodium 4 mg PO DAILY 12/10/18 12/10/18 History Carvedilol [Coreg 3.125mg Tablet] 3.125 mg PO BID #60 tab 12/13/18 Rx Clopidogrel Bisulfate [Plavix 75mg 75 mg PO DAILY #30 tab 12/13/18 Rx Tab] Lisinopril [Zestril 2.5mg Tablet] 2.5 mg PO DAILY #30 tab 12/13/18 Rx Prescriptions/Medication Reconciliation: New Clopidogrel Bisulfate [Plavix 75mg Tab] 75 mg PO DAILY #30 tab Lisinopril [Zestril 2.5mg Tablet] 2.5 mg PO DAILY #30 tab Carvedilol [Coreg 3.125mg Tablet] 3.125 mg PO BID #60 tab Continued Warfarin Sodium 4 mg PO DAILY Nitroglycerin [Nitrostat 0.4mg SL Tablet] 0.4 mg SL NEEDED PRN PRN Reason: chest pain Isosorbide Dinitrate 30 mg PO BID Famotidine [Acid Controller] 20 mg PO DAILY Pravastatin Sodium [Pravachol 40mg Tablet] 40 mg PO HS Discontinued Metoprolol Succinate 12.5 mg PO DAILY
[2018-12-13 08:09] VITALS: BP 109/43
== END 2018-12-13 09:12 | disposition home or self-care (01) | DRG 247 ==
LOC: ER 21:24 → 2ND 22:38
PROVIDERS: ADMIT Internal Medicine Adolescent Medicine; ATTEND Family Medicine
CPT/HCPCS: 36415; 71010; 71020; 71045; 71046; 80048; 80061; 83735; 83880; 84484; 85025; 85347; 85610; 85730; 93005; 93306; 94760; 96365; 96375; 99152; 99153; 99285; C1725; C1760; C1769; C1876; C1894; J1644; J2405; Q9967

== ENCOUNTER 2019-06-12 11:54 | Observation (INO) ==
--- NOTE | 2019-06-12 12:15 | Emergency Department Note ---
ED Disposition Clinical Impression: Chest pain Qualifiers: Chest pain type: precordial pain Qualified Code(s): R07.2 - Precordial pain Disposition: Admitted as Observation Condition on Discharge: Fair (Stable) Referrals: Provider,Referral, [Referring] - Time of Disposition: 12:53 - Critical Care Critical Care Time: No Attestation: On 06/12/19, the high probability of a clinically significant, sudden or life threatening deterioration of the following system(s) required my full and direct attention, intervention and personal management. The time I documented below is in addition to time spent performing reported procedures but includes the following listed in this critical care notation. Medical Decision Making - Medical Records Medical records reviewed: Yes: I reviewed the patient's medical records. - Aakash Inquiry Pt receiving controlled substance: No Aakash was queried for this patient: No Vital Signs: 06/12/19 11:54 Pulse Rate [Radial] 74 Respiratory Rate 18 Blood Pressure [Right Arm] 133/68 Blood Pressure Mean [Right Arm] 89 Blood Pressure Source [Right Arm] Automatic Cuff Blood Pressure Position [Right Arm] Sitting 02 Sat by Pulse Oximetry 100 Oxygen Delivery Method Room Air - Lab Data Lab results reviewed: Yes: I reviewed the patient's lab results. Lab Results 06/12/19 12:05: WBC 5.8, RBC 3.45 L, Hgb 10.1 L, Hct 31.5 L, MCV 91.3, MCH 29.2, MCHC 31.9, RDW 13.5, Plt Count 260, MPV 8.1, Neut % (Auto) 53.9, Lymph % (Auto) 32.0, [place] % (Auto) 7.3, Eos % (Auto) 6.0, Baso % (Auto) 0.8, Neut # (Auto) 3.1, Lymph # (Auto) 1.9, [place] # (Auto) 0.4, Eos # (Auto) 0.4, Baso # (Auto) 0.1 06/12/19 12:05: Sodium 140, Potassium 4.1, Chloride 104, Carbon Dioxide 27, Anion Gap 13.1, BUN 30 H, Creatinine 0.97, Estimated Creat Clear 31, Estimated GFR 54 L, Est GFR ( Amer) 66, Glucose 100, Calcium 8.5, Troponin I < 0.02 Result diagrams: 06/12/19 12:05 06/12/19 12:05 Orders (Tests/Meds): ED MEDICATIONS Discontinued Medications Generic Name Dose Route Start Last Admin Trade Name Donaldo PRN Reason Stop Dose Admin Aspirin 243 mg 06/12/19 12:01 06/12/19 12:17 Aspirin 81mg Chewable Tablet PO 06/12/19 12:02 243 mg ONCE ONE Administration Nitroglycerin 1 gm 06/12/19 12:19 06/12/19 12:27 Nitroglycerin 1 Inch Oint Udp TD 06/12/19 12:20 1 gm ONCE ONE Administration ORDERS Category Date Time Status Chest XR -- portable [XR chest portable] Stat Exams 06/12/19 11:59 Taken Liver Panel Stat Lab 06/12/19 12:17 Ordered MAG [Magnesium] Stat Lab 06/12/19 12:18 Ordered PT/INR [Prothrombin Time INR] Stat Lab 06/12/19 12:18 Ordered Troponin I Q3H Lab 06/12/19 15:00 Ordered Troponin I Q3H Lab 06/12/19 18:00 Ordered - Radiology Data #1 Image(s): Chest Image Reviewed: Yes I reviewed the patient's radiology image Luminary reading of the chest x-ray by myself: No free air, effusions or infiltrates. Patient is noted to have sternal wires. Chronic COPD changes. - ECG Data Tracing #1 I reviewed this ECG and interpreted as documented below: (EKG at 11:53 AM showed atrial fibrillation with a rate of 62 bpm and probable old septal infarct c gretta.) Medical Decision Narrative: 12:12 patient evaluated. EKG reviewed and does not show any acute changes. Cardiac work-up ordered and pending at this time. 12:50 it should be noted the patient did take 2 nitroglycerin sublingual at home prior to arrival in the ER that did not help her pain. She also took one baby aspirin. Upon arrival we did go ahead and give her 3 additional baby aspirin 81 mg p.o. and she subsequently received 1 inch nitroglycerin paste to her anterior chest wall. Since she has had a nitroglycerin paste on her chest discomfort is much improved although it is not completely gone at this time. Chest x-ray showed no acute changes. Her cardiac labs showed a normal troponin. I have subsequently discussed the patient's case with Dr. Medina who is taking in patient call for her family physician Dr. Ronquillo. Patient is also seen Dr. Shantelle [facility] cardiology group in the past. Patient will be admitted for observation to rule out. I have discussed results of work-up, diagnosis and care plan with patient and daughter. They understand, agree and all questions answered. Patient will now be admitted. Chest Pain HPI - General Chief Complaint: Chest Pain Stated Complaint: chest pain Time Seen by Provider: 06/12/19 12:07 Mode of Arrival: Ambulatory Limitations: No Limitations Description of Symptoms (Recalled from ER Triage Doc. by RN): chest pain since last night. Already took 1- 81mg of ASA and 2- Nitro before arrival. - History of Present Illness HPI narrative: Patient is here in emergency room via private vehicle from home complaining having chest discomfort. Patient states that she began to have a hurting in the middle of her chest about an hour and a half ago. Patient does not have any m igration of pain into her neck shoulders back or upper extremities. No sweating, nausea, vomiting. Patient does have a history of atrial fibrillation. No other complaints. - Related Data Home Medications Medication Instructions Recorded Confirmed Famotidine [Acid Controller] 20 mg PO DAILY 12/10/18 12/24/18 Isosorbide Dinitrate 30 mg PO BID 12/10/18 12/24/18 Nitroglycerin [Nitrostat 0.4mg SL 0.4 mg SL NEEDED PRN 12/10/18 12/24/18 Tablet] Pravastatin Sodium [Pravachol 40mg 40 mg PO HS 12/10/18 12/24/18 Tablet] Warfarin Sodium 4 mg PO DAILY 12/10/18 12/24/18 Previous Rx's Medication Instructions Recorded Aspirin [Aspirin 81mg EC Tab] 81 mg PO DAILY 30 Days #30 12/13/18 tablet. Clopidogrel Bisulfate [Plavix 75mg 75 mg PO DAILY #30 tab 12/13/18 Tab] carvediloL [Coreg 3.125mg Tablet] 3.125 mg PO BID #60 tab 12/13/18 lisinopril 10 mg tablet 10 mg PO DAILY #90 tab 04/06/19 Allergies Allergy/AdvReac Type Severity Reaction Status Date / Time MED GIVEN TO REVERSE EPIDURAL Allergy Unknown Uncoded 12/24/18 11:[address] [facility] History - Hepatitis A Screen Drug use history?: No High risk sexual behaviors?: No History of sexually transmitted infection?: No Currently employed?: No Childcare worker?: No Do you have indoor plumbing?: Yes Do you have electricity?: Yes Attestation statement:: This patient has been screened for Hepatitis A risk factors. Medical History: Reports:: Arrhythmia, Atrial Fibrillation, Coronary Artery Disease, Hypertension Denies:: Cancer, Diabetes Mellitus Type 1, Diabetes Mellitus Type 2, MRSA Laterality Cases: Bilateral: Arthroscopy Shoulder Other Surgeries: Yes: CABG, Cardiac Catheterization, Coronary Stent Amputation: No Fractures: Yes - Social History Educational Level: Completed High School Smoking Status: Never smoker Alcohol Intake: never Substance Use Type: denies use Occupational Status: retired Housing: house Household Members: spouse Family Hx:: Cancer, Coronary Artery Disease, Heart Attack, Hyperlipidemia, Hypertension ROS Obtained: Yes All systems reviewed & no additional complaints - Constitutional Constitutional: Reports system reviewed and no additional complaints, except as docu - Eyes Eyes: Reports system reviewed and no additional complaints, except as docu - ENT Ears, Nose, Mouth, and Throat: Reports system reviewed and no additional complaints, except as docu - Cardiovascular Cardiovascular: Reports system reviewed and no additional complaints, except as docu, Reports as per HPI, Reports chest pain, Denies diaphoresis, Denies dyspnea, Denies dyspnea on exertion, Reports leg edema (increased over past d ay), Denies radiating jaw, neck or arm pain - Respiratory Respiratory: Yes system reviewed and no additional complaints, except as docu - Gastrointestinal Gastrointestingal: Reports: system reviewed and no additional complaints, except as docu - Genitourinary Female Genitourinary: Reports system reviewed and no additional complaints, except as docu - Musculoskeletal Musculoskeletal: Reports system reviewed and no additional complaints, except as docu, Reports other (Chronic back pain) - Integumentary/Breasts Skin/Breast: Reports system reviewed and no additional complaints, except as docu - Neurologic Neurologic: Reports system reviewed and no additional complaints, except as docu - Endocrine Endocrine: Reports system reviewed and no additional complaints, except as docu - Hematologic/Lymphatic Henatologic/Lymphatic: Reports system reviewed and no additional complaints, except as docu - Allergic/Immunologic Allergic/Immunologic: Reports system reviewed and no additional complaints, except as docu Physical Exam - General General appearance: alert, in no apparent distress - Head Head exam: atraumatic, normocephalic, normal inspection - Eye Eye exam: Present: normal appearance, PERRL, EOMI - ENT ENT exam: Present: mucous membranes moist, other (No otic or nasal discharge) - Neck Neck exam: Present: trachea midline - Chest Chest inspection: Present: normal inspection, symmetric chest wall rise - Respiratory Respiratory exam: Present: normal lung sounds bilaterally. Absent: respiratory distress, wheezes, accessory muscle use - Cardiovascular Cardiovascular exam: Present: systolic murmur, other (Irregularly irregular) - Abdominal Exam Abdominal exam: Present: soft, normal bowel sounds. Absent: distention, tenderness, guarding, rebound, rigidity - Extremities Exam Extremities exam: Present: normal inspection, full ROM, other (Mild non-pitting edema bilateral legs to feet) - Neurological Exam Neurological exam: Present: alert, oriented X3, CN II-XII intact - Psychiatric Psychiatric exam: Present: normal affect, normal mood - Skin Skin exam: Present: warm, dry, intact
[2019-06-12 12:16] LABS: Basophils # 0.1 K/mm3 (0-0.2); Basophils % 0.8 % (0.1-2.0); Eosinophils # 0.4 K/mm3 (0.0-0.4); Hematocrit 31.5 % (37.0-47.0); Hemoglobin 10.1 g/dL (12.2-16.2); Lymphocytes # 1.9 K/mm3 (0.7-4.5); Mean Corpuscular HGB Conc 31.9 g/dL (31.8-35.4); Mean Corpuscular Volume 91.3 fl (81-99); Mean Platelet Volume 8.1 fl (7.4-10.4); Monocytes # 0.4 K/mm3 (0.1-1.0); Monocytes % 7.3 % (1.7-9.3); Neutrophils # 3.1 K/mm3 (1.8-7.8); Neutrophils % 53.9 % (37.0-80.0); Platelet Count 260 K/mm3 (142-424); Red Blood Count 3.45 M/mm3 (4.20-5.40); Red Cell Distribution Width 13.5 % (11.5-17.5); White Blood Count 5.8 K/mm3 (4.8-10.8)
[2019-06-12 12:32] LABS: Anion Gap 13.1 mEq/L (5-15); Blood Urea Nitrogen 30 mg/dL (7-18); Calcium 8.5 mg/dL (8.5-10.1); Carbon Dioxide 27 mmol/L (21.0-32.0); Chloride 104 mmol/L (98-107); Glucose 100 mg/dL (74-106); Sodium 140 mmol/L (136-145)
[2019-06-12 13:39] LABS: Appearance,Urine CLEAR (Clear); Bilirubin,Urine Negative (Negative); Blood, Urine Negative (Negative); Color,Urine YELLOW (Yellow); Glucose,Urine (UA) Negative (Negative); Ketones,Urine Negative (Negative); Leukocyte Esterase,Urine Negative (Negative); Microscopic, Urine URINE MICROSCOPIC (MICROSCOPIC); PH,Urine 6.5 (5.0-8.5); Protein,Urine Negative (Negative); Urobilinogen,Urine 0.2 EU/dl (0.2)
--- NOTE | 2019-06-12 13:40 | Pharmacy Consult Notes ---
[facility] Pharm[facility] VTE Monitoring - Patient Demographics Admission date: 06/12/19 Report Date: 06/12/19 Time: 13:40 Allergies/Adverse Reactions: Patient Allergies MED GIVEN TO REVERSE EPIDURAL Allergy (Unknown, Uncoded 12/24/18 11:42) Height: 1.55 m Weight: 48.081 kg Patient Problems: Current Active Problems Chest pain (Acute) - VTE Risk Labs: VTE Related Lab Results Hgb 10.1 g/dL (12.2-16.2) L 06/12/19 12:05 Hct 31.5 % (37.0-47.0) L 06/12/19 12:05 Plt Count 260 K/mm3 (142-424) 06/12/19 12:05 BUN 30 mg/dL (7-18) H 06/12/19 12:05 Creatinine 0.97 mg/dL (0.55-1.02) 06/12/19 12:05 Estimated Creat Clear 31 mL/min (50-200) 06/12/19 12:05 Clinical Trial Participant: No - Prophylaxis VTE Prophylaxis Ordered?: Yes Types of VTE Prophylaxis: TEDS Knee High
[2019-06-12 13:42] LABS: INR 1.92 (0.9-1.1); Prothrombin Time 19.4 seconds (9.4-11.8)
[2019-06-12 13:48] LABS: Albumin Level 3.4 gm/dL (3.4-5.0); Bilirubin,Direct 0.2 mg/dL (0.0-0.2); Bilirubin,Indirect 0.5 mg/dL (0.0-0.9); Bilirubin,Total 0.7 mg/dL (0.2-1.0)
[2019-06-12 13:52] LABS: Squamous Epithelial Cell,Urine Occasional #/hpf (0-5)
--- NOTE | 2019-06-12 14:57 | Consult Report ---
History of Present Illness Consult date: 06/12/19 Requesting physician: Brady Medina Consult reason: chest pain Chief complaint: chest pain Additional Medical History:: 1. Coronary artery disease status post CABG about age 68 A. STEMI, 12/2018 B. [facility], ANGIOGRAPHIC RESULTS: 1. The left main artery has distal 60% stenosis 2. The left anterior descending artery has mid vessel 40-50% stenosis. Competitive flow from the ESTRELLA graft is identified. 3. The circumflex artery is nondominant and free of disease 4. The right coronary artery is a large dominant vessel and has stents in the mid and distal segment. The midportion has a 50% followed by sequential 50% stenoses followed by a 90% stenosis followed by 70% followed by additional 40%. The posterior descending artery is large with mild disease 5. The MIMS ventriculogram reveals severely reduced ejection fraction with mid anterior apical and inferior hypokinesis estimated ejection fraction 25 6. The left ventricular end-diastolic pressure 25 mmHg 7. The left internal mammary artery is patent to the LAD with competitive flow however it appears as the LAD receives mostly antegrade flow from the [place] circulation 8. The saphenous vein graft to the circumflex artery is widely patent IMPRESSION: 1. Coronary artery disease as described above 2. Critical disease in the right coronary artery which produced the ST elevation myocardial infarction last evening. 3. Successful reconstruction of the proximal mid distal right coronary artery critical disease reduced to 0% with 2 contiguous drug-eluting stents 4. Severe left ventricular dysfunction with regional wall motion abnormality 5. Mildly elevated LVEDP 2. Atrial fibrillation A. chronic anticoagulation 3. Hypertension A. Echo, 12/2018, 2D 1. Left atrium is moderately enlarged, left ventricle is mildly dilated, severely reduced left ventricular systolic function, there is marked hypokinesis involving mid to distal septum, anterior, anterior apical, anterolateral lateral and inferior apical wall. 2. The right atrium is moderately enlarged, right ventricle is mildly dilated with normal contractility. 3. The aortic valve is thickened and calcified, leaflet continue to display mobility, there is no aortic stenosis. 4. Mitral valve has mitral annular calcification, leaflets are minimally thickened. 5. The tricuspid valve is grossly normal. 6. The pulmonic valve is poorly visualized. 7. No significant pericardial effusion noted. DOPPLER INTERROGATION: Doppler interrogation of the aortic, mitral and tricuspid valvular presence of moderate mitral and tricuspid regurgitation, calculated right ventricular systolic pressure is 52 mmHg consistent with moderate pulmonary hypertension, diastolic parameters are inconclusive, Doppler evidence of raised left atrial as well as left ventricular end-diastolic pressure seen. Mild aortic insufficiency also seen. Inferior vena cava is not well visualized. CONCLUSION: 1. Moderate biatrial enlargement, mildly dilated left ventricle, mild concentric left ventricular hypertrophy, visually estimated ejection fraction approximately 20%, with multiple segmental wall motion abnormality described above. Doppler evidence of raised left atrial as well as left ventricular end-diastolic pressure seen. 2. Mildly enlarged right ventricle with normal contractility. 3. Mild aortic, moderate mitral and tricuspid regurgitation, calculated right ventricular systolic pressure is 52 mmHg consistent with moderate pulmonary hypertension. Inferior vena cava is not well visualized. 4. No significant pericardial effusion noted. 4. Mild dementia History of present illness: Patient is here in emergency room via private vehicle from home complaining having chest discomfort. Patient states that she began to have a hurting in the middle of her chest about an hour and a half ago. Patient does not have any migration of pain into her neck shoulders back or upper extremities. No sweating, nausea, vomiting. Patient does have a history of atrial fibrillation. No other complaints. 12:12 patient evaluated. EKG reviewed and does not show any acute changes. Cardiac work-up ordered and pending at this time. 12:50 it should be noted the patient did take 2 nitroglycerin sublingual at home prior to arrival in the ER that did not help her pain. She also took one baby aspirin. Upon arrival we did go ahead and give her 3 additional baby aspirin 81 mg p.o. and she subsequently received 1 inch nitroglycerin paste to her anterior chest wall. Since she has had a nitroglycerin paste on her chest discomfort is much improved although it is not completely gone at this time. Chest x-ray showed no acute changes. Her cardiac labs showed a normal troponin. I have subsequently discussed the patient's case with Dr. Medina who is taking in patient call for her family physician Dr. Ronquillo. Patient is also seen Dr. Delaney's cardiology group in the past. Patient will be admitted for observation to rule out. I have discussed results of work-up, diagnosis and care plan with patient and daughter. They understand, agree and all questions answered. Patient will now be admitted. The above per Dr. Batista Patient and daughter in room. Patient and daughter have been packing up 70 years of belongings and moving the patient and with the daughter due to the recent loss of patient's . There is been some emotional times and patient has been working diligently to finish this process. She denies any chest pain with exertion in doing this process but today did develop chest discomfort that did not resolve with sublingual nitroglycerin or aspirin. Relief came in the ER after nitroglycerin paste was applied. EKG shows atrial fibrillation with a controlled ventricular response with no acute ST segment changes. Cardiology consulted for evaluation recommendations. [facility] History Medical History: Reports:: Arrhythmia, Atrial Fibrillation, Coronary Artery Disease, Hypertension, Myocardial Infarction Denies:: Cancer, Diabetes Mellitus Type 1, Diabetes Mellitus Type 2, MRSA *Have you ever received a pneumonia vaccine?: Yes *Have you received a flu vaccine this season?: Yes Laterality Cases: Bilateral: Arthroscopy Shoulder Other Surgeries: Yes: CABG, Cardiac Catheterization, Coronary Stent Amputation: No Fractures: Yes - *Social History Educational Level: Completed High School Smoking Status: Never smoker Alcohol Intake: never Substance Use Type: denies use *Occupational Status:: retired Housing: house Household Members: children *Travel in the last 8 weeks: None Family Hx:: Cancer, Coronary Artery Disease, Heart Attack, Hyperlipidemia, Hypertension Meds Home Medications Medication Instructions Recorded Confirmed Type Isosorbide Dinitrate 15 mg PO BID 12/10/18 06/12/19 History Nitroglycerin [Nitrostat 0.4mg SL 0.4 mg SL NEEDED PRN 12/10/18 06/12/19 History Tablet] Pravastatin Sodium [Pravachol 40mg 40 mg PO HS 12/10/18 06/12/19 History Tablet] Warfarin Sodium 4 mg PO DAILY 12/10/18 06/12/19 History Aspirin [Aspirin 81mg EC Tab] 81 mg PO DAILY 06/12/19 06/12/19 History Clopidogrel Bisulfate [Plavix 75mg 75 mg PO DAILY 06/12/19 06/12/19 History Tab] Donepezil HCl [Aricept 5mg 5 mg PO HS 06/12/19 06/12/19 History Tablet] Furosemide [Furosemide 20mg Tab] 20 mg PO DAILY 06/12/19 06/12/19 History Metoprolol Succinate 12.5 mg PO BID 06/12/19 06/12/19 History Potassium Chloride [Micro-K 10mEq 10 meq PO DAILY 06/12/19 06/12/19 History cap] carvediloL [Carvedilol 6.25mg Tab] 6.25 mg PO BID 06/12/19 06/12/19 History Allergies Allergy/AdvReac Type Severity Reaction Status Date / Time MED GIVEN TO REVERSE EPIDURAL Allergy Unknown Uncoded 12/24/18 11:42 Review of Systems - Review of Systems Review of systems:: pertinent systems reviewed and negative unless documented below - *Cardiovascular Reports chest pain, Denies fast heart rate - *Respiratory Denies cough, Denies shortness of breath - *Gastrointestinal Denies loose stools, Denies nausea, Denies vomiting - *Genitourinary Denies blood in urine - *Musculoskeletal Reports back pain, Denies joint pain - *Neurologic Denies fainting, Denies tingling Exam Vital signs and Labs for Last 24 Hours: Temp Pulse Resp BP Pulse Ox 97.9 F 77 16 146/54 H 95 06/12/19 14:05 06/12/19 14:05 06/12/19 14:05 06/12/19 14:05 06/12/19 14:05 Laboratory Results - last 24 hr 06/12/19 12:05: WBC 5.8, RBC 3.45 L, Hgb 10.1 L, Hct 31.5 L, MCV 91.3, MCH 29.2, MCHC 31.9, RDW 13.5, Plt Count 260, MPV 8.1, Neut % (Auto) 53.9, Lymph % (Auto) 32.0, [place] % (Auto) 7.3, Eos % (Auto) 6.0, Baso % (Auto) 0.8, Neut # (Auto) 3.1, Lymph # (Auto) 1.9, [place] # (Auto) 0.4, Eos # (Auto) 0.4, Baso # (Auto) 0.1 06/12/19 12:05: Sodium 140, Potassium 4.1, Chloride 104, Carbon Dioxide 27, Anion Gap 13.1, BUN 30 H, Creatinine 0.97, Estimated Creat Clear 31, Estimated GFR 54 L, Est GFR ( Amer) 66, Glucose 100, Calcium 8.5, Troponin I < 0.02 06/12/19 12:05: Total Bilirubin 0.7, Direct Bilirubin 0.2, Indirect Bilirubin 0.5, AST 20, ALT 16, Alkaline Phosphatase 86, Total Protein 6.0 L, Albumin 3.4 06/12/19 12:05: PT 19.4 H, INR 1.92 H 06/12/19 12:05: Magnesium 2.0 06/12/19 13:15: Urine Color Yellow, Urine Appearance Clear, Urine pH 6.5, Ur Specific [place] 1.010, Urine Protein Negative, Urine Glucose (UA) Negative, Urine Ketones Negative, Urine Blood Negative, Urine Nitrate Negative, Urine Bilirubin Negative, Urine Urobilinogen 0.2, Ur Leukocyte Esterase Negative, Urine RBC None, Urine WBC None, Ur Squamous Epith Cells Occasional, Urine Bacteria None I & O for Last 24 hours: Intake & Output 06/10/19 06/11/19 06/12/19 06/13/19 11:59 11:59 11:59 11:59 Weight 106 lb 102 lb 6 oz - *Routine HEENT Exam Head: Present: normocephalic Eye: Present: EOMI, PERRL ENT: Present: mucous membranes moist - *Routine Neck Exam Present: supple. Absent: JVD, carotid bruit - *Routine Respiratory Exam Present: CTA bilaterally. Absent: accessory muscle use, rales, rhonchi, wheezes - *Routine Cardiovascular Exam Present: bradycardia, irregularly irregular. Absent: murmur, gallop, rubs - *Routine Abdominal Exam Present: soft. Absent: tenderness, distended, guarding - *Routine Extremities Exam Present: edema. Absent: calf tenderness - *Routine Neurological Exam Present: alert, oriented X3, moving all extremities Assessment and Plan (1) Chest pain Current visit: Yes Status: Acute Qualifiers: Chest pain type: precordial pain Qualified Code(s): R07.2 - Precordial pain Category: Medical Code(s): R07.9 - Chest pain, unspecified (2) Ischemic cardiomyopathy Current visit: Yes Status: Acute Category: Medical Code(s): I25.5 - Ischemic cardiomyopathy (3) Atherosclerotic heart disease Current visit: No Status: Acute Category: Medical Code(s): I25.10 - Atherosclerotic heart disease of [place] coronary artery without angina pectoris (4) Elevated INR Current visit: No Status: Acute Category: Medical Code(s): R79.1 - Abnormal coagulation profile (5) Atrial fibrillation Current visit: No Status: Chronic Qualifiers: Atrial fibrillation type: chronic Category: Medical Code(s): I48.91 - Unspecified atrial fibrillation (6) History of coronary artery bypass graft Current visit: No Status: Chronic Category: Surgical Code(s): Z95.1 - Presence of aortocoronary bypass graft (7) Hypertension Current visit: No Status: Chronic Qualifiers: Hypertension type: essential hypertension Qualified Code(s): I10 - Essential (primary) hypertension Category: Medical Code(s): I10 - Essential (primary) hypertension (8) History of coronary artery stent placement Current visit: Yes Status: Acute Category: Surgical Code(s): Z95.5 - Presence of coronary angioplasty implant and graft - Assessment and plan all Dx Assessment and Plan for all problems:: 1. Agree with admission to rule out myocardial infarction with serial cardiac enzymes. 2. Patient has a history of ischemic cardiomyopathy in December 2018 at time of her [place] and subsequent coronary stenting. It was recommended that the patient consider LifeVest however due to her advanced age, frail stature and mild dementia she was unable to wear this and it was elected to continue medical therapy. Patient has not had a follow-up echocardiogram to our knowledge to see if she continues to have severely reduced ejection fraction. We will therefore obtain an echocardiogram during this visit. Discussion regarding AICD pending those results. Continue isosorbide dinitrate and statin therapy. Patient's blood pressure is elevated enough that we will start low-dose lisinopril due to cardiomyopathy. I do not believe that she would tolerate beta-mirna therapy due to her borderline bradycardic rate. 3. Continue warfarin and Plavix for atrial fibrillation and coronary artery disease. Will discontinue aspirin therapy.
--- NOTE | 2019-06-12 17:13 | History & Physical Report ---
*Admission Date: 06/12/19 *Chief complaint: Chest pain *History of present illness: 84-year-old female with ischemic cardiomyopathy presented to the emergency department with an intense chest pain. Timing of pain was light morning. When pain did not respond to 2 nitroglycerin at home patient presented to the emergency department. Work-up in the ER began. EKG was negative for any acute ischemia. First troponin was negative. Decision was made to admit the patient for rule out of an MA. Cardiology service was also been consulted and have seen the patient. [facility] History I have reviewed the patient's past medical history: Yes Medical History: Reports:: Arrhythmia, Atrial Fibrillation, Coronary Artery Disease, Hypertension, Myocardial Infarction Denies:: Cancer, Diabetes Mellitus Type 1, Diabetes Mellitus Type 2, MRSA *Have you ever received a pneumonia vaccine?: Yes *Have you received a flu vaccine this season?: Yes Laterality Cases: Bilateral: Arthroscopy Shoulder Other Surgeries: Yes: CABG, Cardiac Catheterization, Coronary Stent Amputation: No Fractures: Yes - *Social History Educational Level: Completed High School Smoking Status: Never smoker Alcohol Intake: never Substance Use Type: denies use *Occupational Status:: retired Housing: house Household Members: children *Travel in the last 8 weeks: None Family Hx:: Cancer, Coronary Artery Disease, Heart Attack, Hyperlipidemia, Hypertension Review of Systems - Constitutional Denies body ache(s), Denies chills, Denies fever(s) - ENT Reports abnormal hearing - *Cardiovascular Reports chest pain, Reports chest pain at rest, Reports irregular heart rhythm, Reports foot swelling - *Respiratory Denies change in phlegm color, Denies chest congestion, Denies cough, Denies shortness of breath - *Gastrointestinal Denies abdominal pain - *Neurologic Denies fainting, Denies tingling Meds Home Medications Medication Instructions Recorded Confirmed Type Isosorbide Dinitrate 15 mg PO BID 12/10/18 06/12/19 History Nitroglycerin [Nitrostat 0.4mg SL 0.4 mg SL NEEDED PRN 12/10/18 06/12/19 History Tablet] Pravastatin Sodium [Pravachol 40mg 40 mg PO HS 12/10/18 06/12/19 History Tablet] Warfarin Sodium 4 mg PO DAILY 12/10/18 06/12/19 History Aspirin [Aspirin 81mg EC Tab] 81 mg PO DAILY 06/12/19 06/12/19 History Clopidogrel Bisulfate [Plavix 75mg 75 mg PO DAILY 06/12/19 06/12/19 History Tab] Donepezil HCl [Aricept 5mg 5 mg PO HS 06/12/19 06/12/19 History Tablet] Furosemide [Furosemide 20mg Tab] 20 mg PO DAILY 06/12/19 06/12/19 History Metoprolol Succinate 12.5 mg PO BID 06/12/19 06/12/19 History Potassium Chloride [Micro-K 10mEq 10 meq PO DAILY 06/12/19 06/12/19 History cap] carvediloL [Carvedilol 6.25mg Tab] 6.25 mg PO BID 06/12/19 06/12/19 History Allergies Allergy/AdvReac Type Severity Reaction Status Date / Time MED GIVEN TO REVERSE EPIDURAL Allergy Unknown Uncoded 12/24/18 11:42 Exam Vital signs and Labs for Last 24 Hours: Temp Pulse Resp BP Pulse Ox 97.7 F 82 16 102/38 L 100 06/12/19 16:00 06/12/19 16:00 06/12/19 16:00 06/12/19 16:00 06/12/19 16:00 Laboratory Results - last 24 hr 06/12/19 12:05: WBC 5.8, RBC 3.45 L, Hgb 10.1 L, Hct 31.5 L, MCV 91.3, MCH 29.2, MCHC 31.9, RDW 13.5, Plt Count 260, MPV 8.1, Neut % (Auto) 53.9, Lymph % (Auto) 32.0, [place] % (Auto) 7.3, Eos % (Auto) 6.0, Baso % (Auto) 0.8, Neut # (Auto) 3.1, Lymph # (Auto) 1.9, [place] # (Auto) 0.4, Eos # (Auto) 0.4, Baso # (Auto) 0.1 06/12/19 12:05: Sodium 140, Potassium 4.1, Chloride 104, Carbon Dioxide 27, Anion Gap 13.1, BUN 30 H, Creatinine 0.97, Estimated Creat Clear 31, Estimated GFR 54 L, Est GFR ( Amer) 66, Glucose 100, Calcium 8.5, Troponin I < 0.02 06/12/19 12:05: Total Bilirubin 0.7, Direct Bilirubin 0.2, Indirect Bilirubin 0.5, AST 20, ALT 16, Alkaline Phosphatase 86, Total Protein 6.0 L, Albumin 3.4 06/12/19 12:05: PT 19.4 H, INR 1.92 H 06/12/19 12:05: Magnesium 2.0 06/12/19 13:15: Urine Color Yellow, Urine Appearance Clear, Urine pH 6.5, Ur Specific [place] 1.010, Urine Protein Negative, Urine Glucose (UA) Negative, Urine Ketones Negative, Urine Blood Negative, Urine Nitrate Negative, Urine Bilirubin Negative, Urine Urobilinogen 0.2, Ur Leukocyte Esterase Negative, Urine RBC None, Urine WBC None, Ur Squamous Epith Cells Occasional, Urine Bacteria None 06/12/19 15:00: Troponin I < 0.02 I & O for Last 24 hours: Intake & Output 06/10/19 06/11/19 06/12/19 06/13/19 11:59 11:59 11:59 11:59 Weight 106 lb 102 lb 6 oz Narrative: Patient is comfortable sitting up in the bed. ENT exam is grossly normal. Neck is without carotid bruits. Lungs are clear. Heart rate is irregular. Abdomen is thin and soft. Extremities have 1+ edema of the lower legs and ankles Assessment and Plan (1) Chest pain Current visit: Yes Status: Acute Qualifiers: Chest pain type: precordial pain Qualified Code(s): R07.2 - Precordial pain Category: Medical Code(s): R07.9 - Chest pain, unspecified (2) Ischemic cardiomyopathy Current visit: Yes Status: Acute Category: Medical Code(s): I25.5 - Ischemic cardiomyopathy (3) Atherosclerotic heart disease Current visit: No Status: Acute Category: Medical Code(s): I25.10 - Atherosclerotic heart disease of [place] coronary artery without angina pectoris (4) Elevated INR Current visit: No Status: Acute Category: Medical Code(s): R79.1 - Abnormal coagulation profile (5) Atrial fibrillation Current visit: No Status: Chronic Qualifiers: Atrial fibrillation type: chronic Category: Medical Code(s): I48.91 - Unspecified atrial fibrillation (6) History of coronary artery bypass graft Current visit: No Status: Chronic Category: Surgical Code(s): Z95.1 - Presence of aortocoronary bypass graft (7) Hypertension Current visit: No Status: Chronic Qualifiers: Hypertension type: essential hypertension Qualified Code(s): I10 - Essential (primary) hypertension Category: Medical Code(s): I10 - Essential (primary) hypertension (8) History of coronary artery stent placement Current visit: Yes Status: Acute Category: Surgical Code(s): Z95.5 - Presence of coronary angioplasty implant and graft - Assessment and plan all Dx Assessment and Plan for all problems:: 1. Rule out for MA with serial EKG and enzymes. Echocardiogram is been ordered but there is no reading at this time. Patient will be monitored overnight. If there are no changes patient will be discharged home in the morning. Of note was the decision to add lisinopril to the patient's antihypertensive regimen but have just been informed by the nursing staff patient's systolic blood pressure is 103. Additional antihypertensives will be held and patient will be monitored overnight
--- NOTE | 2019-06-12 18:43 | Electrocardiograph Report ---
APPROVED REPORT Exam: Resting ECG HR:62 bpm ECG Measurements Heart Rate 62 AXES QRSd 82 QRS 53 QT 432 T-58 QTc 438 <Conclusion> Atrial fibrillation Indeterminate axis Poor R Wave Progression Abnormal ECG Electronically signed by : Kun Christie, 06/12/2019 18:42:31
--- NOTE | 2019-06-13 07:52 | Discharge Summary ---
General - General Admission date:: 06/12/19 Discharge date: 06/13/19 HPI HPI: 84-year-old female with ischemic cardiomyopathy presented to the emergency department with an intense chest pain. Timing of pain was light morning. When pain did not respond to 2 nitroglycerin at home patient presented to the emergency department. Work-up in the ER began. EKG was negative for any acute ischemia. First troponin was negative. Decision was made to admit the patient for rule out of an PR. Cardiology service was also been consulted and have seen the patient. Hospital Course Hospital Course: Patient was admitted and ruled out for PR with serial troponins. Telemetry monitoring did not reveal any arrhythmias. Initially patient was hypertensive and plan had been to add on some lisinopril to the patient's regimen however her blood pressure gradually decreased while hospitalized. Therefore lisinopril will not be a home medication. Patient was discharged home on the morning of June 13. 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 Objective Vital signs: Temp Pulse Resp BP Pulse Ox 98.1 F 81 18 160/72 H 94 L 06/13/19 07:46 06/13/19 07:46 06/13/19 07:46 06/13/19 07:46 06/13/19 07:46 no acute distress - *Routine Respiratory Exam Present: CTA bilaterally - *Routine Cardiovascular Exam Present: irregularly irregular Results Labs on day of discharge: Labs from last 24 hours 06/12/19 06/12/19 06/12/19 18:10 15:00 13:15 WBC RBC Hgb Hct MCV MCH MCHC RDW Plt Count MPV Neut % (Auto) Lymph % (Auto) [place] % (Auto) Eos % (Auto) Baso % (Auto) Neut # (Auto) Lymph # (Auto) [place] # (Auto) Eos # (Auto) Baso # (Auto) PT INR Sodium Potassium Chloride Carbon Dioxide Anion Gap BUN Creatinine Estimated Creat Clear Estimated GFR Est GFR ( Amer) Glucose Calcium Magnesium Total Bilirubin Direct Bilirubin Indirect Bilirubin AST ALT Alkaline Phosphatase Troponin I < 0.02 < 0.02 Total Protein Albumin Urine Color Yellow Urine Appearance Clear Urine pH 6.5 Ur Specific [place] 1.010 Urine Protein Negative Urine Glucose (UA) Negative Urine Ketones Negative Urine Blood Negative Urine Nitrate Negative Urine Bilirubin Negative Urine Urobilinogen 0.2 Ur Leukocyte Esterase Negative Urine RBC None Urine WBC None Ur Squamous Epith Cells Occasional Urine Bacteria None 06/12/19 06/12/19 06/12/19 12:05 12:05 12:05 WBC RBC Hgb Hct MCV MCH MCHC RDW Plt Count MPV Neut % (Auto) Lymph % (Auto) [place] % (Auto) Eos % (Auto) Baso % (Auto) Neut # (Auto) Lymph # (Auto) [place] # (Auto) Eos # (Auto) Baso # (Auto) PT 19.4 H INR 1.92 H Sodium Potassium Chloride Carbon Dioxide Anion Gap BUN Creatinine Estimated Creat Clear Estimated GFR Est GFR ( Amer) Glucose Calcium Magnesium 2.0 Total Bilirubin 0.7 Direct Bilirubin 0.2 Indirect Bilirubin 0.5 AST 20 ALT 16 Alkaline Phosphatase 86 Troponin I Total Protein 6.0 L Albumin 3.4 Urine Color Urine Appearance Urine pH Ur Specific [place] Urine Protein Urine Glucose (UA) Urine Ketones Urine Blood Urine Nitrate Urine Bilirubin Urine Urobilinogen Ur Leukocyte Esterase Urine RBC Urine WBC Ur Squamous Epith Cells Urine Bacteria 06/12/19 06/12/19 12:05 12:05 WBC 5.8 RBC 3.45 L Hgb 10.1 L Hct 31.5 L MCV 91.3 MCH 29.2 MCHC 31.9 RDW 13.5 Plt Count 260 MPV 8.1 Neut % (Auto) 53.9 Lymph % (Auto) 32.0 [place] % (Auto) 7.3 Eos % (Auto) 6.0 Baso % (Auto) 0.8 Neut # (Auto) 3.1 Lymph # (Auto) 1.9 [place] # (Auto) 0.4 Eos # (Auto) 0.4 Baso # (Auto) 0.1 PT INR Sodium 140 Potassium 4.1 Chloride 104 Carbon Dioxide 27 Anion Gap 13.1 BUN 30 H Creatinine 0.97 Estimated Creat Clear 31 Estimated GFR 54 L Est GFR ( Amer) 66 Glucose 100 Calcium 8.5 Magnesium Total Bilirubin Direct Bilirubin Indirect Bilirubin AST ALT Alkaline Phosphatase Troponin I < 0.02 Total Protein Albumin Urine Color Urine Appearance Urine pH Ur Specific [place] Urine Protein Urine Glucose (UA) Urine Ketones Urine Blood Urine Nitrate Urine Bilirubin Urine Urobilinogen Ur Leukocyte Esterase Urine RBC Urine WBC Ur Squamous Epith Cells Urine Bacteria DS: Diagnosis - Discharge Diagnosis (1) Chest pain Status: Acute (2) Ischemic cardiomyopathy Status: Acute (3) Atherosclerotic heart disease Status: Acute (4) Elevated INR Status: Acute (5) Atrial fibrillation Status: Chronic (6) History of coronary artery bypass graft Status: Chronic (7) Hypertension Status: Chronic (8) History of coronary artery stent placement Status: Acute Discharge Plan - Patient Discharge Instructions ACTIVITY: Continue current activity DIET: continue same diet - Follow up Plan Follow up with: Brady Medina MD [Staff Physician] - 06/16/19 Disposition: Home, Self-Prison Medications: Home Medications Medication Instructions Recorded Confirmed Type Isosorbide Dinitrate 30 mg PO DAILY 12/10/18 06/12/19 History Nitroglycerin [Nitrostat 0.4mg SL 0.4 mg SL NEEDED PRN 12/10/18 06/12/19 History Tablet] Pravastatin Sodium [Pravachol 40mg 40 mg PO HS 12/10/18 06/12/19 History Tablet] Warfarin Sodium 3 mg PO DAILY 12/10/18 06/12/19 History Aspirin [Aspirin 81mg EC Tab] 81 mg PO DAILY 06/12/19 06/12/19 History Clopidogrel Bisulfate [Plavix 75mg 75 mg PO DAILY 06/12/19 06/12/19 History Tab] Donepezil HCl [Aricept 5mg 5 mg PO HS 06/12/19 06/12/19 History Tablet] Furosemide [Furosemide 20mg Tab] 20 mg PO DAILY 06/12/19 06/12/19 History Metoprolol Succinate 12.5 mg PO BID 06/12/19 06/12/19 History Potassium Chloride [Micro-K 10mEq 10 meq PO DAILY 06/12/19 06/12/19 History cap] Vit A/Vit C/Vit E/Zinc/Copper 1 tab-cap PO BID 06/12/19 06/12/19 History [Preservision Areds Softgel] carvediloL [Carvedilol 6.25mg Tab] 6.25 mg PO BID 06/12/19 06/12/19 History Prescriptions/Medication Reconciliation: Continued Warfarin Sodium 3 mg PO DAILY Nitroglycerin [Nitrostat 0.4mg SL Tablet] 0.4 mg SL NEEDED PRN PRN Reason: chest pain Isosorbide Dinitrate 30 mg PO DAILY Donepezil HCl [Aricept 5mg Tablet] 5 mg PO HS Clopidogrel Bisulfate [Plavix 75mg Tab] 75 mg PO DAILY carvediloL [Carvedilol 6.25mg Tab] 6.25 mg PO BID Metoprolol Succinate 12.5 mg PO BID Aspirin [Aspirin 81mg EC Tab] 81 mg PO DAILY Vit A/Vit C/Vit E/Zinc/Copper [Preservision Areds Softgel] 1 tab-cap PO BID Pravastatin Sodium [Pravachol 40mg Tablet] 40 mg PO HS Potassium Chloride [Micro-K 10mEq cap] 10 meq PO DAILY Furosemide [Furosemide 20mg Tab] 20 mg PO DAILY - Problem Reconciliation Problems Reviewed?: Yes
--- NOTE | 2019-06-15 19:52 | Cardiology Report ---
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 RT(R) Ht: 5 ft 2 in Wt: 102lbs BSA: 1.44 BP: 146/54 mmHg Indications: Atrial Fibrillation, CAD, Cardiomyopathy 2D Dimensions LVOT 1.97 cm (M/F) 1.5-2.5 M-Mode Dimensions RVDd 1.98 cm (0.9-2.6)LVDd 4.65 cm (3.5-5.7) LVDs 3.20 cm (3.5-5.7)IVSd 0.73 cm (0.6-1.1) PWd 0.64 cm (0.6-1.1)EF (Teich) 58.90% FS 31.20% EDV (Teich) 99.80 mL ESV (Teich) 41.00 mL Left Ventricle Left atrium is moderately enlarged, left ventricle is normal size, mild concentric left ventricular hypertrophy, visually estimated ejection fraction 55% with no regional wall motion abnormality, diastolic parameters are inconclusive. Right Ventricle Right atrium right ventricle moderately enlarged with normal contractility. Aortic Valve Aortic valve is thickened and calcified leaflet chordae display good mobility, there is no aortic stenosis or aortic insufficiency. Mitral Valve Mitral valve leaflets are minimally thickened, there is no mitral stenosis, there is mild mitral regurgitation. Tricuspid Valve Tricuspid valve is grossly normal, there is moderate tricuspid regurgitation, calculated right ventricular systolic pressure 65 mmHg which is moderately elevated. Pulmonic Valve Pulmonic valve is poorly visualized. Great Vessels Aortic root is normal size. Pericardium No significant pericardial effusion noted. Conclusion 1. Biatrial enlargement, normal left ventricular size, mild concentric left ventricular hypertrophy, visually estimated ejection fraction 55% with no regional wall motion abnormality, diastolic parameters are inconclusive. 2. Moderately enlarged right ventricle with normal contractility. 3. Thickened and calcified aortic valve without aortic stenosis aortic insufficiency. 4. Mild mitral and moderate tricuspid regurgitation, calculated right ventricular systolic pressure 65 mmHg which is moderately elevated, inferior vena cava is mildly dilated without significant inspiratory collapse. 5. No significant pericardial effusion noted. Electronically signed by : Freddie Herrera, 06/15/2019 19:52:25
== END 2019-06-13 10:00 | disposition home or self-care (01) ==
LOC: 2ND 11:54 → ER 11:54 → 2ND 13:46
PROVIDERS: ADMIT Family Medicine; ATTEND Family Medicine
CPT/HCPCS: 36415; 71010; 71045; 80048; 80076; 81001; 83735; 84484; 85025; 85610; 93005; 93306; 99284; G0378